=== PATIENT | male | born 1945 | race Hispanic/Latino ===

== ENCOUNTER 2022-03-20 19:22 | Emergency (ER) | payer OTHER ==
[2022-03-20] MEDS ORDERED: NA CHLORIDE 0.9% 1,000 ML ONE (20:15)
[2022-03-20 21:17] LABS: Absolute Lymphocytes (CBC) 0.9 K/uL (0.7-4.9); Hematocrit 29.3 % (39.6-49.0); Lymphocytes % 25.1 % (15.3-44.8); MPV 7.6 fL (7.6-11.3); RBC Red Blood Cell Count 3.08 M/uL (4.33-5.43)
[2022-03-20 21:18] LABS: Protime INR 1.56
[2022-03-20 21:21] LABS: Urine Blood 3+ (Negative); Urine Glucose Negative (Negative); Urine Protein 1+ (Negative)
[2022-03-20 21:40] LABS: Urine RBC >50 /HPF (NONE SEEN)
[2022-03-20 21:41] LABS: Urine Bacteria 20-50 /HPF (NONE SEEN)
[2022-03-20 21:58] LABS: AST/SGOT 13 U/L (15-37); Alkaline Phosphatase 72 U/L (45-117); BUN Blood Urea Nitrogen 14 mg/dL (7-18); Bicarbonate 22 mmol/L (21-32); Bilirubin Total 0.2 mg/dL (0.2-1.0); Glomerular Filtration Rate 116 ml/min (=/>90); Glucose Level 139 mg/dL (74-106); Lipase 17 U/L (73-393); Protein, Total 3.4 g/dL (6.4-8.2); Sodium Level 152 mmol/L (136-145)
[2022-03-20 22:02] LABS: ALT/SGPT < 10 U/L (12-78); Albumin < 0.8 g/dL (3.4-5.0)
[2022-03-20 22:03] LABS: Potassium 2.2 mmol/L (3.5-5.1)
[2022-03-20] MEDS ORDERED: KCL 20 MEQ/100 mL IVPB 100 ML IV ONE (22:25)
[2022-03-20] MEDS ORDERED: CEFTRIAXONE 1000 MG/VIAL ONE (22:25)
[2022-03-20] MEDS ORDERED: NA CHLORIDE 0.9% 50 ML ONE (22:25)
--- NOTE | 2022-03-20 23:37 | EDPHYS ---
Physician Documentation [facility] Name: Leonel Dejesus Jr Age: 76 yrs Sex: Male : 1945 Arrival Date: 03/20/2022 Time: 19:37 Bed 6 Private MD: ED Physician Omid Lobato HPI: 03/20 19:42 This 76 yrs old Male presents to ER via EMS with complaints of Diarrhea. mh7 Decreased urination. 19:42 The patient presents to the emergency department with diarrhea, that is intermittent. mh7 Onset: The symptoms/episode began/occurred 3 week(s) ago. Possible causes: unknown. The symptoms are aggravated by nothing. The symptoms are alleviated by nothing. Associated signs and symptoms: Pertinent positives: abdominal pain, anorexia, Pertinent negatives: belching, constipation, fever, flatulence, GI bleeding, hematuria, nausea, vomiting. Severity of symptoms: At their worst the symptoms were moderate 2 day(s) ago, in the emergency department the symptoms are unchanged. Historical: - Allergies: 19:50 No Known Allergies; ll3 - Home Meds: 19:50 Eliquis oral [Active]; ll3 - Immunization history:: Client reports receiving the 2nd dose of the Covid vaccine. - Social history:: Smoking status: Patient denies any tobacco usage or history of. ROS: 19:42 Constitutional: Negative for fever, chills, and weight loss, Eyes: Negative for injury, mh7 pain, redness, and discharge, ENT: Negative for injury, pain, and discharge, Neck: Negative for injury, pain, and swelling, Cardiovascular: Negative for chest pain, palpitations, and edema, Respiratory: Negative for shortness of breath, cough, wheezing, and pleuritic chest pain, Back: Negative for injury and pain, MS/Extremity: Negative for injury and deformity, Skin: Negative for injury, rash, and discoloration, Neuro: Negative for headache, weakness, numbness, tingling, and seizure, Psych: Negative for depression, anxiety, suicide ideation, homicidal ideation, and hallucinations, Allergy/Immunology: Negative for hives, rash, and allergies, Endocrine: Negative for neck swelling, polydipsia, polyuria, polyphagia, and marked weight changes, Hematologic/Lymphatic: Negative for swollen nodes, abnormal bleeding, and unusual bruising. Exam: 19:42 Head/Face: Normocephalic, atraumatic. Eyes: Pupils equal round and reactive to light, mh7 extra-ocular motions intact. Lids and lashes normal. Conjunctiva and sclera are non-icteric and not injected. Cornea within normal limits. Periorbital areas with no swelling, redness, or edema. 19:42 Neck: Trachea midline, no thyromegaly or masses palpated, and no cervical lymphadenopathy. Supple, full range of motion without nuchal rigidity, or vertebral point tenderness. No Meningismus. Chest/axilla: Normal chest wall appearance and motion. Nontender with no deformity. No lesions are appreciated. Cardiovascular: Regular rate and rhythm with a normal S1 and S2. No gallops, murmurs, or rubs. Normal PMI, no JVD. No pulse deficits. Respiratory: Lungs have equal breath sounds bilaterally, clear to auscultation and percussion. No rales, rhonchi or wheezes noted. No increased work of breathing, no retractions or nasal flaring. Back: No spinal tenderness. No costovertebral tenderness. Full range of motion. Skin: Warm, dry with normal turgor. Normal color with no rashes, no lesions, and no evidence of cellulitis. 19:42 Psych: Awake, alert, with orientation to person, place and time. Behavior, mood, and affect are within normal limits. 19:42 Constitutional: The patient appears in no acute distress, alert, awake, frail. 19:42 ENT: Mouth: Oral mucosa: dry, Posterior pharynx: is normal. 19:42 Abdomen/GI: Inspection: distension, that is moderate, Bowel sounds: normal, in all quadrants, Palpation: mild abdominal tenderness, in the right upper quadrant and left upper quadrant, mass, is not appreciated, rebound tenderness, is not appreciated, voluntary guarding, is not appreciated, involuntary guarding, is not appreciated, no appreciated organomegaly, Indicators: McBurney's point is not tender, Mahan's sign is negative, Rovsing's sign is negative, Obturator sign is negative, Psoas sign is negative, Liver: no appreciated palpable abnormalities, Hernia: not appreciated. 19:42 Neuro: Orientation: is normal, Mentation: is normal, Memory: is normal, Cranial nerves: grossly normal, Cerebellar function: is grossly normal, Motor: is grossly normal based on the patient's age, Sensation: no obvious gross deficits, Gait: not tested. seizure activity, is not displayed by the patient, Abnormal movements: there are no abnormal movements. Vital Signs: 19:46 BP 100 / 77; Pulse 99; Resp 20; Temp 97.7(O); Pulse Ox 99% on R/A; Weight 74.84 kg (R); ll3 Height 5 ft. 11 in. (180.34 cm) (R); Pain 7/10; 20:30 BP 97 / 72; Pulse 87; Resp 18; Pulse Ox 99% on R/A; ll3 21:15 BP 113 / 79; Pulse 73; Resp 18; Pulse Ox 100% ; ll3 19:46 Body Mass Index 23.01 (74.84 kg, 180.34 cm) ll3 MDM: 23:34 Differential diagnosis: Nonspecific abd pain, gastritis, cholecystitis, pancreatitis, 7 diverticulitis, viral gastroenteritis, gastroenteritis. Data reviewed: vital signs, nurses notes, EMS record, lab test result(s), CBC, electrolytes, urinalysis, EKG, radiologic studies, CT scan. Data interpreted: Pulse oximetry: on room air is 100 %. Interpretation: normal. Counseling: I had a detailed discussion with the patient and/or guardian regarding: the historical points, exam findings, and any diagnostic results supporting the discharge/admit diagnosis, lab results, radiology results, the need for further work-up and treatment in the hospital. Response to treatment: the patient's symptoms have mildly improved after treatment. 23:36 Patient medically screened. [facility] 03/21 00:51 ED course: Family requests transfer to [facility] for continuity of [facility] care with his doctors.. 03/20 19:54 Order name: CBC with Diff; Complete Time: 22:13 [facility] 03/20 19:54 Order name: CMP; Complete Time: 22:08 [facility] 03/20 19:54 Order name: Lipase; Complete Time: 22:13 [facility] 03/20 19:54 Order name: Urine Microscopic Only; Complete Time: 21:58 [facility] 03/20 19:55 Order name: Protime (+inr); Complete Time: 22:13 [facility] 03/20 19:55 Order name: Ptt, Activated; Complete Time: 22:13 [facility] 03/20 19:56 Order name: CT Abd/Pelvis - IV Contrast Only [facility] 03/20 20:37 Order name: SARS-COV-2 RT PCR; Complete Time: 22:26 [facility] 03/20 20:37 Order name: Influenza Screen (A ; Complete Time: 22:13 [facility] 03/20 21:21 Order name: Urine Dipstick-Ancillary; Complete Time: 22:13 [facility] 03/20 21:43 Order name: Urine Culture [facility] 23:30 Order name: BNP; Complete Time: 00:26 [facility] 03/20 23:30 Order name: Troponin High Sensitivity; Complete Time: 00:41 [facility] 03/20 19:54 Order name: IV Saline Lock; Complete Time: 21:14 [facility] 03/20 19:54 Order name: Labs collected and sent; Complete Time: 21:14 [facility] 03/20 19:54 Order name: Urine Dipstick-Ancillary (obtain specimen); Complete Time: 22:15 [facility] 03/20 19:54 Order name: Gomez; Complete Time: 21:09 [facility] 03/20 19:54 Order name: EKG; Complete Time: 19:55 [facility] 03/20 19:54 Order name: EKG - Nurse/Tech; Complete Time: 22:14 [facility] 03/20 23:30 Order name: Chest Single View XRAY me1 Administered Medications: 03/20 20:28 Drug: NS 0.9% 1000 ml Route: IV; Rate: 1 bolus; Site: right wrist; 3 03/21 00:45 Follow up: Response: No adverse reaction; IV Status: Completed infusion; IV Intake: ll3 1000ml 03/20 22:40 Drug: Rocephin (cefTRIAXone) 1 grams Route: IV; Rate: per protocol; Site: right wrist; 3 22:52 Follow up: Response: No adverse reaction; IV Status: Completed infusion; IV Intake: [id number] 22:50 Drug: Potassium Chloride 20 mEq Route: IV; Rate: per protocol; Site: right antecubital; 3 03/21 00:44 Follow up: Response: No adverse reaction; IV Status: Completed infusion; IV Intake: ll3 100ml 00:44 Drug: D5W with KCL 20 mEq/L 1000 ml Route: IV; Rate: 75 ml/hr; Site: right antecubital; ll3 00:44 Drug: Potassium Chloride 20 mEq Route: IV; Rate: calculated rate; Site: right wrist; ll3 02:03 Not Given (Pt transferedd): Potassium Chloride 20 mEq IV at per protocol once; ll3 administer over 1-2 hours Disposition Summary: 03/21/22 00:51 Transfer Ordered Transfer Location: [place] [id number] Reason: Higher level of care [facility] Condition: Stable(03/21/22 00:51) [facility] Problem: an ongoing problem(03/21/22 00:51) [facility] Symptoms: have improved(03/21/22 00:51) [facility] Accepting Physician: Dr. Gifford(03/21/22 02:22) vc1 Diagnosis - Diarrhea, unspecified(03/21/22 00:51) [facility] - Dehydration(03/21/22 00:51) [facility] - Hyperosmolality and hypernatremia(03/21/22 00:51) [facility] - Hypokalemia(03/21/22 00:51) [facility] - UTI/ Urinary tract infection, site not specified(03/21/22 00:51) [facility] Forms: - Medication Reconciliation Form [facility] - SBAR form [facility] Signatures: Dispatcher [employer] EDMS Lalito Alexander, FISH DRIER-C FISH DRIER-Cla1 Omid Lobato MD MD 7 Anam Olivo RN RN ll3 Amber Lara RN RN vc1 Corrections: (The following items were deleted from the chart) 00:49 03/20 23:36 Inpatient Admission [place] [address] 03/21 00:49 03/20 23:36 OmitMacho law [place] [address] 03/21 00:49 03/20 23:36 Telemetry/MedSurg (Inpatient) [place] [address] 03/21 00:49 03/20 23:36 Stable [place] [address] 03/21 00:49 03/20 23:36 an ongoing problem [place] [address] 03/21 00:49 03/20 23:36 have improved [place] [address] 03/21 00:49 03/20 23:36 Standard [place] [address] 03/21 00:49 03/20 23:36 [place] [address] 03/21 00:49 03/20 23:36 Diarrhea, unspecified [place] [address] 03/21 00:49 03/20 23:36 Dehydration [place] [address] 03/21 00:49 03/20 23:36 Hyperosmolality and hypernatremia [place] [address] 03/21 00:49 03/20 23:36 Hypokalemia [place] [address] 03/21 00:49 03/20 23:36 UTI/ Urinary tract infection, site not specified [place] [address] 03/21 02:22 00:51 Dr. Gifford [facility] vc1
--- NOTE | 2022-03-20 23:37 | ER ---
Nurse's Notes [facility] Name: Leonel Dejesus Jr Age: 76 yrs Sex: Male : 1945 Arrival Date: 03/20/2022 Time: 19:37 Bed 6 Private MD: Diagnosis: Diarrhea, unspecified;Dehydration;Hyperosmolality and hypernatremia;Hypokalemia;UTI/ Urinary tract infection, site not specified Presentation: 03/20 19:46 Chief complaint: EMS states: Toned out for not urinating for 2 days, and diarrhea for 3 ll3 weeks, EMS states pt BP was 76/64 CONSIGNEE, pt c/o abdominal pain / since , states pt has not been eating normally. Coronavirus screen: Vaccine status: Patient reports receiving the 2nd dose of the covid vaccine. diarrhea. Ebola Screen: No symptoms or risks identified at this time. Initial Sepsis Screen: Does the patient meet any 2 criteria?. Risk Assessment: Do you want to hurt yourself or someone else? Patient reports no desire to harm self or others. Onset of symptoms is unknown. 19:46 Method Of Arrival: EMS: [facility] ll3 19:46 Acuity: PHILLIP 3 ll3 Triage Assessment: 19:50 General: Appears comfortable, Behavior is calm, cooperative. Pain: Complains of pain in ll3 abdomen Pain currently is 7 out of 10 on a pain scale. Pain began 2-3 days ago. Is continuous. Neuro: Level of Consciousness is awake, alert, obeys commands, Oriented to person, place, situation. Respiratory: Respiratory effort is even, unlabored, Respiratory pattern is regular, symmetrical. GI: Abdomen is round non-distended, Stools are reported to be diarrhea. Parent/caregiver reports the patient having diarrhea, incontinence, intolerance of food, pain. : Parent/caregiver report the patient having inability to void since 2 days. Derm: Skin is pink, warm \T\ dry. Historical: - Allergies: 19:50 No Known Allergies; ll3 - Home Meds: 19:50 Eliquis oral [Active]; ll3 - Immunization history:: Client reports receiving the 2nd dose of the Covid vaccine. - Social history:: Smoking status: Patient denies any tobacco usage or history of. Assessment: 19:53 General: See triage assessment. ll3 21:00 Reassessment: No changes from previously documented assessment. Patient and/or family ll3 updated on plan of care and expected duration. Pain level reassessed. Patient is alert, oriented x 3, equal unlabored respirations, skin warm/dry/pink. 22:03 Reassessment: critical alerts called by lab, potassium 2.2, Cl 124, Ca 5.6, Alb. less vc1 than 0.8. Vital Signs: 19:46 BP 100 / 77; Pulse 99; Resp 20; Temp 97.7(O); Pulse Ox 99% on R/A; Weight 74.84 kg (R); ll3 Height 5 ft. 11 in. (180.34 cm) (R); Pain 7/10; 20:30 BP 97 / 72; Pulse 87; Resp 18; Pulse Ox 99% on R/A; ll3 21:15 BP 113 / 79; Pulse 73; Resp 18; Pulse Ox 100% ; ll3 19:46 Body Mass Index 23.01 (74.84 kg, 180.34 cm) ll3 ED Course: 19:37 Patient arrived in ED. mw2 19:42 Omid Lobato MD is Attending Physician. 7 19:46 Anam Olivo, BRIANDA is Primary Nurse. ll3 19:50 Triage completed. ll3 19:50 Arm band placed on Patient placed in an exam room, on a stretcher, on pulse oximetry. ll3 20:59 Inserted saline lock: 22 gauge in right antecubital area, using aseptic technique. ll3 Blood collected. 22:38 CT Abd/Pelvis - IV Contrast Only In Process Unspecified. EDMS 23:35 Macho Roche MD is Hospitalizing Provider. [facility] 03/21 00:01 initiated a transfer with Caleb Truongkaley from [facility]. mw2 00:20 Chest Single View XRAY In Process Unspecified. EDMS 00:22 X-ray completed. Portable x-ray completed in exam room. Patient tolerated procedure [facility]. 00:44 administrative approval given by Caleb Patel/ patient has been accepted to [address]/ Dr. Gifford accepted the patient in transfer/report to be called to [phone]. Administered Medications: 03/20 20:28 Drug: NS 0.9% 1000 ml Route: IV; Rate: 1 bolus; Site: right wrist; ll3 12 00:45 Follow up: Response: No adverse reaction; IV Status: Completed infusion; IV Intake: ll3 1000ml 03/20 22:40 Drug: Rocephin (cefTRIAXone) 1 grams Route: IV; Rate: per protocol; Site: right wrist; ll3 22:52 Follow up: Response: No adverse reaction; IV Status: Completed infusion; IV Intake: [id number] 22:50 Drug: Potassium Chloride 20 mEq Route: IV; Rate: per protocol; Site: right antecubital; ll3 06 00:44 Follow up: Response: No adverse reaction; IV Status: Completed infusion; IV Intake: ll3 100ml 00:44 Drug: D5W with KCL 20 mEq/L 1000 ml Route: IV; Rate: 75 ml/hr; Site: right antecubital; ll3 00:44 Drug: Potassium Chloride 20 mEq Route: IV; Rate: calculated rate; Site: right wrist; 3 02:03 Not Given (Pt transferedd): Potassium Chloride 20 mEq IV at per protocol once; ll3 administer over 1-2 hours Intake: 03/20 22:52 IV: 50ml; Total: 50ml. ll3 03/21 00:44 IV: 100ml; Total: 150ml. ll3 00:45 IV: 1000ml; Total: 1150ml. ll3 Outcome: 03/20 23:36 Decision to Hospitalize by Provider. 7 03/21 00:51 ER care complete, transfer ordered by . [facility] 02:22 Patient left the ED. vc1 Signatures: Dispatcher [employer] EDHoa Velasquez 1 Ann-Marie Busby 2 Omid Lobato MD MD 7 Anam Olivo, BRIANDA RN 3 Amber Lara RN RN vc1
[2022-03-21 00:11] LABS: Troponin High Sensitivity 184.1 pg/mL (<58.9)
[2022-03-21] MEDS ORDERED: KCL 20 MEQ/100 mL IVPB 100 ML IV ONE (00:36)
[2022-03-21] MEDS ORDERED: D5.45NS W/KCL 20MEQ 1,000 ML IV ONE (00:36)
[2022-03-21 02:28] VITALS: TEMP 97.7
[2022-03-21 02:34] VITALS: BP 113/79; O2SAT 100
--- NOTE | 2022-03-22 13:37 | EKG ---
Test Date: 2022-03-20 Test Time: 21:24:32 Gps Field Data Collector: LL MEASUREMENT RESULTS: Intervals: Rate: 83 DC: 128 QRSD: 84 QT: 262 QTc: 307 Gilbert: P: 27 DC: 128 QRS: 14 T: 190 INTERPRETIVE STATEMENTS: Sinus rhythm with premature atrial complexes with aberrant conduction Low voltage QRS Nonspecific ST and T wave abnormality Abnormal ECG No previous ECG available for comparison Electronically Signed On 03-22-22 13:34:55 CDT by Homero Tomlinson
--- NOTE | 2022-03-22 13:49 | RAD REPORT ---
EXAM DESCRIPTION: CT - Abdomen Pelvis W Contrast - 03/21/2022 2:11 am CLINICAL HISTORY: Abdominal pain, acute, nonlocalized. COMPARISON: None. TECHNIQUE: CT of the abdomen and pelvis was performed following intravenous administration of iodina keaton contrast. Arterial phase images through the abdomen, and portal venous phase images of the abdome n and pelvis were obtained. Oral contrast was not administered. Axial, coronal, and sagittal soft tis natasha window reconstructions were created and sent to PACS. This exam was performed according to our departmental dose-optimization program, which includes autom ated exposure control, adjustment of the mA and/or kV according to patient size and/or use of iterati ve reconstruction technique. FINDINGS: Thoracic: Partially imaged medium to large bilateral pleural effusions. Hepatobiliary: No concerning hepatic lesion identified. Multiple small hepatic hypodensities, possibl y cysts. The portal veins are patent. The gallbladder is unremarkable. No biliary ductal dilatation. Pancreas: Unremarkable. Spleen: Unremarkable. Gastrointestinal: Mild circumferential wall thickening in the rectum, which contains a small amount o f liquid stool. Prominent gaseous distention of the sigmoid colon and transverse colon. No definite v olvulus. Moderate amount of fecal material in the right colon. No evidence of small bowel obstruction . The appendix is nonvisualized, but there are no pericecal inflammatory changes identified. Adrenals: No abnormality identified in either adrenal gland. Renal: No concerning parenchymal abnormality in either kidney. No hydronephrosis or urolithiasis. Bladder/Reproductive: The urinary bladder is decompressed by a balloon catheter. Mild prostatomegaly. Vascular/Lymphatics: Mildly prominent retroperitoneal lymph nodes. Mild calcific atherosclerosis. Abd ominal aorta is normal in caliber. Musculoskeletal: No concerning osseous lesion identified. Severe anasarca. Moderate disc and endplate degenerative changes at L3-4. Fluid / peritoneum: Moderate abdominopelvic free fluid. No free intraperitoneal air identified. IMPRESSION 1. Mild circumferential wall thickening in the rectum, which contains a small amount of liquid stool. Prominent gaseous distention of the sigmoid colon and transverse colon. No definite vo lvulus. 2. Fluid overload, with moderate abdominopelvic ascites, severe anasarca, and partially imaged medi um to large pleural effusions. Electronically signed by: Tiana Carter MD 03/20/2022 11:25 PM CDT Due to temporary technical issues with the PACS/Fluency reporting system, reports are being signed by the in house radiologist without review as a courtesy to ensure prompt reporting. The interpreting r adiologist is fully responsible for the content of the report.
--- NOTE | 2022-03-22 13:50 | RAD REPORT ---
EXAM DESCRIPTION: RAD - Chest Single View - 03/21/2022 12:18 am CLINICAL HISTORY: 76 years, Male, ABN CT COMPARISON: None FINDINGS: Single view of the chest was obtained portable. Prior films were compared. External EKG le ads within the [id number] limits diagnosis. There is decreased lung volume. The heart is not enl arged. The thoracic aorta is mildly tortuous. Elevation of the right hemidiaphragm. Blunting of the r ight lateral CP angle suggest small trace of pleural effusion. Compressive atelectatic changes right lung base. The rest of the soft tissue and bony structures demonstrate to be unremarkable. IMPRESSION: Small trace of right pleural effusion with compressive atelectatic changes right lung ba se. Electronically signed by: David Temple MD 03/21/2022 12:39 AM CDT Due to temporary technical issues with the PACS/Fluency reporting system, reports are being signed by the in house radiologist without review as a courtesy to ensure prompt reporting. The interpreting r adiologist is fully responsible for the content of the report.
== END 2022-03-21 02:22 | disposition short-term general hospital (02) ==
LOC: ER 19:22
DX: E86.0 Dehydration (principal); E87.1 Hypo-osmolality and hyponatremia; E87.6 Hypokalemia; N39.0 Urinary tract infection, site not specified; Z20.822 Contact with and (suspected) exposure to COVID-19; Z79.01 Long term (current) use of anticoagulants
CPT/HCPCS: 96365; 96361; 93005; 87088; 85025; 87086; 36415; 85610; 85730; 84484; 83690; 80053; 83880; 87804 ×2; 74177; 71045; 96375; 99284; 96366; U0003; Q9967; J3480 ×2; J7030; 81003; 81015

== ENCOUNTER 2022-06-02 13:34 | Inpatient (IN) | payer OTHER ==
--- OUTSIDE RECORDS SUMMARY | 2022-06-02 13:40 | XMS REPORT | Continuity of Care Document ---
:1945 Author Organization [facility] t Address [address] [place] [address] Care Team Providers Name Role Phone [phone] Attending Clinician Unavailable Ana Attending Clinician Unavailable BABAK MIRANDA Attending Clinician Unavailable JEAN ROE Attending Clinician Unavailable Thomas Attending Clinician Unavailable SANNA SARGENT Attending Clinician Unavailable Sim Correa MD Attending Clinician Kadie Attending Clinician Unavailable [id number] Admitting Clinician Unavailable Ana Admitting Clinician Unavailable BABAK MIRANDA Admitting Clinician Unavailable JEAN ROE Admitting Clinician Unavailable Thomas Admitting Clinician Unavailable SANNA SARGENT Admitting Clinician Unavailable Kadie Admitting Clinician Unavailable Payers Payer Name Policy Type Policy Number Effective Date Expiration Date Ana zendejas HUMANA MEDICARE [id number] 2021 ADVANTAGE PPO 00:00:00 HUMANA (MEDICARE [id number] REPLACEMENT/ADVANTA GE - PPO) AETNA (MEDICARE [id number] 2019 REPLACEMENT PPO) 00:00:00 AETNA [id number] 2019 00:00:00 [facility] - [id number] MEDICARE SOLUTIONS - MEDICARE COMPLETE (MEDICARE REPLACEMENT PPO) Problems Condition Condition Condition Status Onset Resolution Last Treating Co mments Source Name Details Category Date Date Treatment Clinician Date Low back Low Back Problem Active [place] pain Pain 06-11 da 00:00: Medical 00 Group Muscle Muscle Problem Active [place] spasm of Spasm of 06-11 da cervical Cervical 00:00: Medica l muscle of Muscle of 00 Grou p neck Neck Chronic Chronic Problem Active [place]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 Social History Social Habit Start Date Stop Date Quantity Comments Source Sex Assigned At [birth year] [facility] 00:00:00 00:00:00 Smoking Status Start Date Stop Date Source Former Smoker [facility] Tobacco smoking consumption unknown [facility] Medications Ordered Filled Start Stop Current Ordering Indication Dosage Frequency Signature Comments Components Source Medication Medication Date Date Medication? Clinician (SIG) Name Name Eliquis 5 Eliquis 5 No Eliquis 5 [place] mg tablet mg tablet mg tablet da TAKE 1 TAKE 1 TAKE 1 Medical TABLET BY TABLET BY TABLET BY Group MOUTH TWICE MOUTH TWICE MOUTH DAILY FOR DAILY FOR TWICE DVT DVT DAILY FOR DVT Immunizations Ordered Immunization Filled Immunization Date Status Commen ts Source Name Name COVID-19, mRNA, COVID-19, mRNA, 2021-09-16 Completed Donn marina LNP-S, PF, 30 LNP-S, PF, 30 00:00:00 Medical Group mcg/0.3 mL dose mcg/0.3 mL dose (Pfizer-BioNTech) (Konnects-BioNTech) influenza, influenza, 2021-08-19 Completed [place] injectable, injectable, 00:00:00 Medical Grou p quadrivalent quadrivalent COVID-19 COVID-19 2021-01-15 Completed [place] (SARS-COV-2) (SARS-COV-2) 00:00:00 Medical Gr oup vaccine, unspecified vaccine, unspecified COVID-19 COVID-19 2020-12-25 Completed [place] (SARS-COV-2) (SARS-COV-2) 00:00:00 Medical Gr oup vaccine, unspecified vaccine, unspecified influenza, influenza, 2020-06-18 Completed [place] injectable, injectable, 00:00:00 Medical Grou p quadrivalent quadrivalent influenza, high dose influenza, high 2019-07-28 Completed [place] seasonal dose seasonal 00:00:00 Medical Stevie up Vital Signs Vital Name Observation Time Observation Value Comments Source BP Diastolic 2022-02-22 00:00:00 57 mm[Hg] [facility] Height 2022-02-22 00:00:00 71 [in_i] [facility] BMI (Body Mass 2022-02-22 00:00:00 16.9 kg/m2 [facility] Medical Index) Group BP Systolic 2022-02-22 00:00:00 80 mm[Hg] [facility] Body Weight 2022-02-22 00:00:00 1936 [oz_av] [facility] BP Diastolic 2022-01-05 00:00:00 63 mm[Hg] [facility] Height 2022-01-05 00:00:00 71 [in_i] [facility] BMI (Body Mass 2022-01-05 00:00:00 16.9 kg/m2 [facility] Medical Index) Group BP Systolic 2022-01-05 00:00:00 110 mm[Hg] [facility] Body Weight 2022-01-05 00:00:00 1936 [oz_av] [facility] BP Diastolic 2021-12-24 00:00:00 63 mm[Hg] [facility] Height 2021-12-24 00:00:00 71 [in_i] [facility] BP Systolic 2021-12-24 00:00:00 91 mm[Hg] [facility] BP Diastolic 2021-08-18 00:00:00 75 mm[Hg] [facility] Height 2021-08-18 00:00:00 71 [in_i] [facility] BMI (Body Mass 2021-08-18 00:00:00 21.6 kg/m2 [facility] Medical Index) Group BP Systolic 2021-08-18 00:00:00 128 mm[Hg] [facility] Body Weight 2021-08-18 00:00:00 2481 [oz_av] [facility] BP Diastolic 2021-06-09 00:00:00 80 mm[Hg] [facility] Height 2021-06-09 00:00:00 71 [in_i] [facility] BMI (Body Mass 2021-06-09 00:00:00 22.7 kg/m2 [facility] Medical Index) Group BP Systolic 2021-06-09 00:00:00 145 mm[Hg] [facility] Body Weight 2021-06-09 00:00:00 2608 [oz_av] [facility] BP Diastolic 2021 00:00:00 74 mm[Hg] [facility] Height 2021 00:00:00 71 [in_i] [facility] BMI (Body Mass 2021 00:00:00 23.3 kg/m2 [facility] Medical Index) Group BP Systolic 2021 00:00:00 134 mm[Hg] [facility] Body Weight 2021 00:00:00 167 [lb_av] [facility] BP Diastolic 2021-06-04 00:00:00 79 mm[Hg] [facility] Height 2021-06-04 00:00:00 71 [in_i] [facility] BMI (Body Mass 2021-06-04 00:00:00 23.3 kg/m2 [facility] BP Systolic 2021-06-04 00:00:00 127 mm[Hg] [facility] Body Weight 2021-06-04 00:00:00 2672 [oz_av] [facility] BP Diastolic 2021-05-27 00:00:00 74 mm[Hg] [facility] Height 2021-05-27 00:00:00 71 [in_i] [facility] BMI (Body Mass 2021-05-27 00:00:00 23.6 kg/m2 [facility] Medical Index) Group BP Systolic 2021-05-27 00:00:00 120 mm[Hg] [facility] Body Weight 2021-05-27 00:00:00 2704 [oz_av] [facility] BP Diastolic 2020-07-30 00:00:00 69 mm[Hg] [facility] Height 2020-07-30 00:00:00 71 [in_i] [facility] BMI (Body Mass 2020-07-30 00:00:00 23.4 kg/m2 [facility] BP Systolic 2020-07-30 00:00:00 117 mm[Hg] [facility] Body Weight 2020-07-30 00:00:00 2690 [oz_av] [facility] BP Diastolic 2019-09-27 00:00:00 76 mm[Hg] [facility] Height 2019-09-27 00:00:00 71 [in_i] [facility] BMI (Body Mass 2019-09-27 00:00:00 25.2 kg/m2 [facility]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 BP Systolic 2019-09-27 00:00:00 122 mm[Hg] [facility] Body Weight 2019-09-27 00:00:00 2896 [oz_av] [facility] BP Diastolic 2019-08-02 00:00:00 77 mm[Hg] [facility] Height 2019-08-02 00:00:00 71 [in_i] [facility] BMI (Body Mass 2019-08-02 00:00:00 24.7 kg/m2 [facility] BP Systolic 2019-08-02 00:00:00 130 mm[Hg] [facility] Body Weight 2019-08-02 00:00:00 2832 [oz_av] [facility] BP Diastolic 2019-07-26 00:00:00 70 mm[Hg] [facility] Height 2019-07-26 00:00:00 71 [in_i] [facility] BMI (Body Mass 2019-07-26 00:00:00 24.8 kg/m2 [facility] Medical Index) Group BP Systolic 2019-07-26 00:00:00 115 mm[Hg] [facility] Body Weight 2019-07-26 00:00:00 2848 [oz_av] [facility] BP Diastolic 2019-05-28 00:00:00 73 mm[Hg] [facility] Height 2019-05-28 00:00:00 71 [in_i] [facility] BMI (Body Mass 2019-05-28 00:00:00 25 kg/m2 [facility] Medical Index) Group BP Systolic 2019-05-28 00:00:00 122 mm[Hg] [facility] Body Weight 2019-05-28 00:00:00 2864 [oz_av] [facility] BP Diastolic 2019-01-24 00:00:00 74 mm[Hg] [facility] Height 2019-01-24 00:00:00 71 [in_i] [facility] BMI (Body Mass 2019-01-24 00:00:00 24.4 kg/m2 [facility] Medical Index) Group BP Systolic 2019-01-24 00:00:00 138 mm[Hg] [facility] Body Weight 2019-01-24 00:00:00 2800 [oz_av] [facility] BP Diastolic 2018-10-26 00:00:00 78 mm[Hg] [facility] Height 2018-10-26 00:00:00 71 [in_i] [facility] BMI (Body Mass 2018-10-26 00:00:00 24.9 kg/m2 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 BP Systolic 2018-10-26 00:00:00 135 mm[Hg] [facility] Body Weight 2018-10-26 00:00:00 2856 [oz_av] [facility] Procedures Procedure Date / Time Performed Performing Clinician [facility] kaley Repair of Inguinal 2021-12-15 00:00:00 [facility] MRI LUMBAR SPINE W WO 2021-08-22 19:50:00 [facility] W WO 2021-08-22 19:50:00 [facility], unilateral 2019-05-28 00:00:00 [facility] Insertion of Stent [facility] [facility] Plan of Care Planned Activity Planned Date Details Comments Source Diagnostic Test 2022-02-22 BMP, serum or [place] [facility] Pending 00:00:00 plasma [code = Group BMP, serum or plasma] Encounters Start End Encounter Admission Attending Care Care Encounter Source Date/Time Date/Time Type Type Clinicians Facility Department ID 2022-04-05 Outpatient [facility] [id number] [place] 06:57:16 [id number] Health 2022-03-16 Outpatient 3 [id number] ENCPL SCN ENCPL 09:55:53 0607 2022-03-10 Outpatient 3 [id number] ENC[facility] REF [id number] E[facility] 09:47:22 0601 2022-03-09 Outpatient 3 [id number] ENCPL REF [id number] ENCPL 15:41:52 0531 2022-06-01 2022-06-01 Outpatient Zuniga_F [facility]G MMG 2021 [place] 00:00:00 00:00:00 0823 [facility] 2022-05-28 2022-05-28 Outpatient Zuniga_F MMG MMG [id number] [place] 00:00:00 00:00:00 0819 [facility] 2022-03-23 2022-04-23 Inpatient U RUBEN [facility] [id number] [facility] 09:34:00 13:32:00 BABAK 2022-02-22 2022-02-22 Outpatient Zuniga_F MMG MMG [id number] [place] 09:29:00 09:29:00 0516 [facility] 2022-02-22 2022-02-22 Marie MMG [place] - [id number] [place] 00:00:00 00:00:00 Tristian [facility] Medical MD: [address] [facility] [address], [place] [address] , Ph. 2022-02-15 2022-02-15 Outpatient Zuniga_F MMG MMG [id number] [place] 02:45:00 02:45:00 0509 Medical Group 2022-01-15 2022-01-27 Inpatient [facility] 2097 [facility] 21:57:00 14:07:00 JAMEEDALTONTwyla 2022-01-08 2022-01-08 Outpatient Zuniga_F MMG MMG 2021 [place] 01:22:00 01:22:00 0427 Medical Group 2022-01-05 2022-01-05 Outpatient Zuniga_F MMG MMG 2021 [place] 10:07:00 10:07:00 0329 [facility] 2022-01-05 2022-01-05 Marie MMG [place] - [id number] [place] 00:00:00 00:00:00 Yolande Guevara Medical MD: [address] [facility] [address], [place] [address] , Ph. 2021-12-24 2021-12-24 Outpatient Hawkins_M MMG MMG [id number] [place] 10:46:00 10:46:00 0317 [facility] 2021-12-24 2021-12-24 Shara MMG [place] - [id number] [facility] 00:00:00 00:00:00 Danni Morrison Medical Medical COST COORDINATOR: [address] [facility] [address], [place] [address] , Ph. 2021-12-05 2021-12-20 Inpatient E ARIE, [facility] [id number] [facility] 00:15:00 13:20:00 SANNA 2021-08-22 2021-08-22 EXT [facility] OP Madeline, EXT MSRDP [id number] [place] 00:00:00 00:00:00 Sim LOCATION [id number] H eahugo [place] [id number] 2021-08-22 2021-08-22 EXT [facility] OP Madeline, EXT MSRDP [id number] [place] 00:00:00 00:00:00 Sim LOCATION [id number] H eah [place]arc[place] [id number] 2021-08-18 2021-08-18 [facility] [id number] [place] 03:35:00 03:35:00 1109 Medical Group 2021-08-18 2021-08-18 Marie [facility] [place] - [id number] [place] 00:00:00 00:00:00 Yolande Guevara Medical MD: [address] [place] [address] , Ph. 2021-06-30 2021-06-30 [facility] [id number] [place] 11:39:00 11:39:00 0928 [facility] 2021-06-09 2021-06-09 [place] [id number] [place] 05:00:00 05:00:00 0831 [facility] 2021-06-09 2021-06-09 [place] [id number] [place] 05:00:00 05:00:00 0902 [facility] 2021-06-09 2021-06-09 Shara [facility] [place] - [id number] M [facility] 00:00:00 00:00:00 Yolande Thayer Medical COST COORDINATOR: [address] [facility] [address], [place] [address] , Ph. 2021-06-06 2021-06-06 Outpatient Koudela_A MMG MM [place] 07:10:00 07:10:00 0830 [facility] 2021 2021 Outpatient Koudela_A MMG MM [place] 11:39:00 11:39:00 0827 [facility] 2021 2021 Outpatient Koudela_A MMG MM [place] 11:39:00 11:39:00 0828 [facility] 2021 2021 Carlos Eduardo [facility] [place] - [id number] [facility] 00:00:00 00:00:00 Antonio Mora MD: Medical Medica l [address] [facility] [address], [place] [address] , Ph. [phone] 2021-06-04 2021-06-04 Outpatient Koudela_A MMG MM [place] 04:21:00 04:21:00 0826 [facility] 2021-06-04 2021-06-04 Marie [facility] [place] - [id number] [place] 00:00:00 00:00:00 Yolande Guevara Medical MD: [address] [facility] [address], [place] [address] , Ph. 2021-05-28 2021-05-28 Outpatient Koudela_A MMG MM [place] 09:02:00 09:02:00 0820 [facility] 2021-05-27 2021-05-27 Outpatient Koudela_A MMG MM [place] 03:25:00 03:25:00 0818 [facility] 2021-05-27 2021-05-27 Sanna [facility] [place] - [id number] [facility] 00:00:00 00:00:00 Koudela, Discovery da PA-C: [facility] Medical [address] [address] , Ph. 2020-10-06 2020-10-06 Outpatient Zuniga_F MMG MMG 2019 [place] 09:50:00 09:50:00 1228 [facility] 2020-10-06 2020-10-06 Outpatient Zuniga_F MMG MMG 2020 [place] 09:50:00 09:50:00 0106 [facility] 2020-09-30 2020-09-30 Outpatient Zuniga_F MMG MMG 2019 [place] 03:18:00 03:18:00 1222 [facility] 2020-09-30 2020-09-30 Marie MMG [place] - [id number] [place] 00:00:00 00:00:00 Yolande Guevara MD: [address] [place] [phone] , Ph. 2020-08-27 2020-08-27 Outpatient Zuniga_F MMG MMG 2019 [place] 02:31:00 02:31:00 1118 [facility] 2020-07-30 2020-07-30 Outpatient Zuniga_F MMG MMG 2019 [place] 04:32:00 04:32:00 1021 [facility] 2020-07-30 2020-07-30 Outpatient Zuniga_F MMG MMG 2019 [place] 04:32:00 04:32:00 1022 [facility] 2020-07-30 2020-07-30 Marie MMG [place] - [id number] [place] 00:00:00 00:00:00 Yolande Guevara MD: [address] [place] [address] , Ph. 2019-10-26 2019-10-26 Outpatient Zuniga_F MMG MMG 2019 [place] 11:25:00 11:25:00 1020 Medical Group 2019-10-26 2019-10-26 Outpatient Zuniga_F MMG MM 2019 [place] 11:25:00 11:25:00 0124 Medical Group 2019-09-27 2019-09-27 Outpatient Zuniga_F MMG MM 2019 [place] 09:40:00 09:40:00 0102 Medical Group 2019-09-27 2019-09-27 Outpatient Zuniga_F MMG MM 2019 [place] 09:40:00 09:40:00 0107 Medical Group 2019-09-27 2019-09-27 Marie MM [place] - [id number] [place] 00:00:00 00:00:00 Yolande Guevara Medical MD: [address] [place] [address], [place] [address] , Ph. 2019-08-02 2019-08-02 Marie MM [place] - [id number] [place] 00:00:00 00:00:00 Yolande Guevara MD: [address] [place] [address] [address], [place] [address] , Ph. 2019-07-26 2019-07-26 Marie MM [place] - [id number] [place] 00:00:00 00:00:00 Yolande Guevara MD: [address] [facility] [address], [place] [address] , Ph. 2019-05-28 2019-05-28 Marie MM [place] - [id number] [place] 00:00:00 00:00:00 Yolande Guevara MD: [address] [address], [place] [address] , Ph. 2019-01-24 2019-01-24 Marie MM [place] - [id number] [place] 00:00:00 00:00:00 Tristian Sierra [facility] Medical MD: [address] [facility] [address], [place] [address] , Ph. 2018-10-26 2018-10-26 Marie [facility] [place] - [id number] [facility] 00:00:00 00:00:00 Yolande Guevara Medical MD: [address] [facility] [address], [place] [address] , Ph. Results Test Description Test Time Test Comments Results Result Comments [facility] 2022-02-22 00:00:00 Test Item Value Reference Range Interpretation Comme n[facility] (test code = [facility]) [facility] and Indirect antibody screen panel - Blood 2022-02-08 08:45:00 Test Item Value Reference Range Interpretation Comments Rh [Type] in Blood (test code = 4+ 86206-2) ABO and Rh group panel - Blood A positive (test code = 72665-7) [facility] Differential [facility] - [id number] 08:30:00 Test Item Value Reference Range Interpretation Comments white blood count (test code = 5.4 K/uL 4.0-12.3 white blood count) red blood count (test code = red 3.51 M/uL 3.80-5.80 L blood count) hemoglobin (test code = 10.9 g/dL 11.7-17.2 L hemoglobin) hematocrit (test code = 35.5 % 35.0-51.0 hematocrit) MCV [Entitic volume] (test code = 101.1 fL 83.0-100.0 H 34034-3) mean corpuscular hemoglobin (test 31.1 pg 26.8-33.4 code = mean corpuscular hemoglobin) mean corpuscular HGB conc (test 30.7 g/dL 30.0-35.0 code = mean corpuscular HGB conc) red cell distribution width (test 19.5 % 12.0-14.0 H code = red cell distribution width) platelet count (test code = 377 K/uL 175-450 platelet count) mean platelet volume (test code = 9.3 fL 9.4-12.6 L mean platelet volume) Segmented neutrophils/100 67.0 % 44.7-82.4 leukocytes in Blood (test code = 48587-1) Immature granulocytes [#/volume] 0.03 K/uL 0.00-0.03 H in Blood (test code = 28574-5) lymphocyte% (test code = 19.7 % 10.0-50.0 lymphocyte%) mono % (test code = mono %) 11.6 % 3.9-13.4 eos % (test code = eos %) 0.7 % 0.0-6.4 Basophils/100 leukocytes in 0.4 % 0.2-1.2 Specimen (test code = 56772-9) Band form neutrophils [#/volume] 3.64 K/uL 1.78-5.38 in Blood (test code = 70374-3) Lymphocytes [#/volume] in Specimen 1.07 K/uL 1.32-3.57 L by Automated count (test code = 19598-9) mono # (test code = mono #) 0.63 K/uL 0.30-0.82 eos # (test code = eos #) 0.04 K/uL 0.04-0.54 basophil # (test code = basophil 0.02 K/uL 0.01-0.08 #) NRBC% (test code = NRBC%) 0 /100 WBC 0-0.2 NRBC# (test code = NRBC#) 0 K/uL [facility] 2000 panel - Serum or Plasma 2022-02-08 08:30:00 Test Item Value Reference Range Interpretation Comments glucose (test code = glucose) 92 mg/dL 82-115 Urea nitrogen [Mass/volume] in 18 mg/dL 8-23 Serum or Plasma (test code = 3094-0) osmolality calculated,serum (test 283 mOsm/kg 280-300 code = osmolality calculated,serum) creatinine (test code = 0.40 mg/dL 0.70-1.20 L creatinine) glomerular filtration rate (test >60.00 code = glomerular filtration rate) Urea nitrogen/Creatinine [Mass 45.0 12.0-20.0 H Ratio] in Serum or Plasma (test code = 3097-3) sodium level (test code = sodium 141 mmol/L 135-145 level) Potassium [Moles/volume] in Body 3.3 mmol/L 3.5-5.2 L fluid (test code = 2821-7) chloride level (test code = 110 mmol/L 98-108 H chloride level) CO2 (test code = CO2) 23 mmol/L 21-32 anion gap (test code = anion gap) 11.3 mEq/L 12.0-20.0 L calcium level (test code = 7.5 mg/dL 8.8-10.2 L calcium level) total protein (test code = total 4.5 g/dL 6.6-8.7 L protein) albumin (test code = albumin) 1.7 g/dL 3.5-5.2 L globulin (test code = globulin) 2.8 g/dL 1.5-4.5 A/G ratio (test code = A/G ratio) 0.6 >1.0 bilirubin,total (test code = 0.3 mg/dL 0.0-1.2 bilirubin,total) AST/SGOT (test code = AST/SGOT) 12 U/L 15-40 L Alanine aminotransferase 8 U/L 0-41 [Enzymatic activity/volume] in Serum or Plasma (test code = 1742-6) Alkaline phosphatase [Enzymatic 75 U/L 40-130 activity/volume] in Serum or Plasma (test code = 6768-6) [facility] Center[facility] [Enzymatic activity/volume] in Serum or Plasma 2022-02-08 08:30:00 Test Item Value Reference Range Interpretation Comments lipase (test code = lipase) 9 U/L 13-60 L [facility] CenterDifferential panel, method unspecified - [id number] 00:00:00NeutrophilsBandLymphocyteAtypical LymphMonocyteEosinophilBasophilMetamyelocyteMyelocyteBlastsAbs Neutrophil Count (Man)Abs Lymph Count (Man)Abs Monocyte Count (Man)Abs Eosinophil Count (Man)Abs Basophil Count (Man)Platelet EstimatePlatelet MorphologyAnisocytosisMacrocytosisStomatocyteToxic GranulationToxic Vacuolation [facility] GroupLactate [Mass/volume] in Serum or [id number] 00:00:00 Test Item Value Reference Range Interpretation Comments lactic acid (test code = lactic 1.77 mmol/L 0.5-2.2 acid) [facility] CenterPT/[id number] 00:00:00 Test Item Value Reference Range Interpretation Comments prothrombin time (test code = 11.4 seconds 10.3-12.3 prothrombin time) INR in Blood by Coagulation 1.05 assay (test code = 59007-1) [facility] Centerpartial thromboplastin [id number] 00:00:00 Test Item Value Reference Range Interpretation Comments INR in Blood by Coagulation 26.3 seconds 22.5-37.0 assay (test code = 62486-4) [facility] CenterLactate [Mass/volume] in Serum or [id number] 00:00:00 Test Item Value Reference Range Interpretation Comments lactic acid (test code = lactic 1.77 mmol/L 0.5-2.2 acid) [facility] CenterUrinalysis complete W Reflex Culture panel - Urine 2021-12-29 11:43:00 Test Item Value Reference Range Interpretation Comments Color of Urine by Auto (test yellow code = 48988-2) Appearance of Urine (test code clear clear = 5767-9) Glucose [Presence] in Urine by negative negative Automated test strip (test code = 09374-3) Bilirubin.total [Mass/volume] negative negative in Urine (test code = 1978-6) Ketones [Mass/volume] in Urine =1 negative H by Automated test strip (test code = 91207-7) Specific gravity of Urine by 1.030 1.003-1.030 Automated test strip (test code = 71006-7) blood urine (test code = blood negative negative urine) pH of Urine (test code = 6.000 5-9 2756-5) protein urine (UA) (test code = =1+ (30 negative H protein urine (UA)) Urobilinogen [Presence] in =4.0 0.2-1.0 H Urine (test code = 82920-7) Nitrite [Presence] in Urine by negative negative Test strip (test code = 5802-4) Leukocyte esterase [Presence] negative negative in Urine by Automated test strip (test code = 80456-7) Erythrocytes [#/volume] in =1-5 0-5 Urine by Automated count (test code = 798-9) Leukocytes [#/area] in Urine =1-5 0-5 sediment by Automated count (test code = 79122-7) Epithelial cells [Presence] in <1 0-5 Urine sediment by Light microscopy (test code = 42911-8) Bacteria identified in Urine by none detected none detect Culture (test code = 630-4) Casts [#/area] in Urine =6-10 none detect H sediment by Automated count (test code = 32308-6) urine culture added? (test code no = urine culture added?) [facility] metabolic 2000 panel - Serum or [id number] 12:40:00 Test Item Value Reference Range Interpretation Comments Glucose [Mass/volume] in Serum or 157 mg/dL 82-115 H Plasma (test code = 2345-7) Urea nitrogen [Mass/volume] in 18 mg/dL 8-23 Serum or Plasma (test code = 3094-0) osmolality calculated,serum (test 272 mOsm/kg 280-300 L code = osmolality calculated,serum) creatinine (test code = 0.44 mg/dL 0.70-1.20 L creatinine) glomerular filtration rate (test >60.00 code = glomerular filtration rate) Urea nitrogen/Creatinine [Mass 40.9 12.0-20.0 H Ratio] in Serum or Plasma (test code = 3097-3) sodium level (test code = sodium 133 mmol/L 135-145 L level) potassium level (test code = 3.9 mmol/L 3.5-5.2 potassium level) chloride level (test code = 103 mmol/L 98-108 chloride level) CO2 (test code = CO2) 20 mmol/L 21-32 L anion gap (test code = anion gap) 13.9 mEq/L 12.0-20.0 calcium level (test code = 7.9 mg/dL 8.8-10.2 L calcium level) [facility] metabolic 2000 panel - Serum or [id number] 12:40:00 Test Item Value Reference Range Interpretation Comments Glucose [Mass/volume] in Serum or 157 mg/dL 82-115 H Plasma (test code = 2345-7) Urea nitrogen [Mass/volume] in 18 mg/dL 8-23 Serum or Plasma (test code = 3094-0) osmolality calculated,serum (test 272 mOsm/kg 280-300 L code = osmolality calculated,serum) creatinine (test code = 0.44 mg/dL 0.70-1.20 L creatinine) glomerular filtration rate (test >60.00 code = glomerular filtration rate) Urea nitrogen/Creatinine [Mass 40.9 12.0-20.0 H Ratio] in Serum or Plasma (test code = 3097-3) sodium level (test code = sodium 133 mmol/L 135-145 L level) potassium level (test code = 3.9 mmol/L 3.5-5.2 potassium level) chloride level (test code = 103 mmol/L 98-108 chloride level) CO2 (test code = CO2) 20 mmol/L 21-32 L anion gap (test code = anion gap) 13.9 mEq/L 12.0-20.0 calcium level (test code = 7.9 mg/dL 8.8-10.2 L calcium level) [facility] Group[facility]inal[facility] complete W Reflex Culture panel - Urine 2021-12-24 12:35:00 Test Item Value Reference Range Interpretation Comments Color of Urine by Auto (test code yellow = 84292-0) Appearance of Urine (test code = clear clear 5767-9) Glucose [Mass/volume] in Urine negative negative (test code = 2350-7) bilirubin, urine (test code = small negative H bilirubin, urine) ketone, urine (test code = small, 15 negative H ketone, urine) Specific gravity of Urine by >=1.030 1.003-1.030 Automated test strip (test code = 24877-4) Hemoglobin [Presence] in Urine by negative negative Test strip (test code = 5794-3) pH of Urine (test code = 2756-5) 6.000 5-9 protein urine (UA) (test code = trace negative H protein urine (UA)) Urobilinogen [Presence] in Urine 2.0 E.U./dL 0.2-1.0 (test code = 34205-6) Nitrite [Presence] in Urine by negative negative Test strip (test code = 5802-4) urine leukocyte esterase (test negative negative code = urine leukocyte esterase) Erythrocytes [Presence] in Urine none seen 0-5 (test code = 78600-2) WBC, urine (test code = WBC, =0-2 0-5 urine) Epithelial cells [Presence] in none seen 0-5 Urine sediment by Light microscopy (test code = 89091-4) bacteria, urine (test code = trace none detect bacteria, urine) urine culture added? (test code = no urine culture added?) [facility] - Urine 2021-12-24 12:35:00 Test Item Value Reference Range Interpretation Comments Color of Urine by Auto (test code yellow = 14215-2) Appearance of Urine (test code = clear clear 5767-9) Glucose [Mass/volume] in Urine negative negative (test code = 2350-7) bilirubin, urine (test code = small negative H bilirubin, urine) ketone, urine (test code = small, 15 negative H ketone, urine) Specific gravity of Urine by >=1.030 1.003-1.030 Automated test strip (test code = 59338-8) Hemoglobin [Presence] in Urine by negative negative Test strip (test code = 5794-3) pH of Urine (test code = 2756-5) 6.000 5-9 protein urine (UA) (test code = trace negative H protein urine (UA)) Urobilinogen [Presence] in Urine 2.0 E.U./dL 0.2-1.0 (test code = 35902-6) Nitrite [Presence] in Urine by negative negative Test strip (test code = 5802-4) urine leukocyte esterase (test negative negative code = urine leukocyte esterase) Erythrocytes [Presence] in Urine none seen 0-5 (test code = 93073-1) WBC, urine (test code = WBC, =0-2 0-5 urine) Epithelial cells [Presence] in none seen 0-5 Urine sediment by Light microscopy (test code = 42759-3) bacteria, urine (test code = trace none detect bacteria, urine) urine culture added? (test code = no urine culture added?) [facility] 2000 [facility] - Serum or [id number] 08:54:00 Test Item Value Reference Range Interpretation Comments Glucose [Mass/volume] in Serum or 127 mg/dL 82-115 H Plasma (test code = 2345-7) Urea nitrogen [Mass/volume] in 19 mg/dL 8-23 Serum or Plasma (test code = 3094-0) osmolality calculated,serum (test 272 mOsm/kg 280-300 L code = osmolality calculated,serum) creatinine (test code = 0.42 mg/dL 0.70-1.20 L creatinine) glomerular filtration rate (test >60.00 code = glomerular filtration rate) Urea nitrogen/Creatinine [Mass 45.2 12.0-20.0 H Ratio] in Serum or Plasma (test code = 3097-3) sodium level (test code = sodium 134 mmol/L 135-145 L level) potassium level (test code = 3.5 mmol/L 3.5-5.2 potassium level) chloride level (test code = 104 mmol/L 98-108 chloride level) CO2 (test code = CO2) 18 mmol/L 21-32 L anion gap (test code = anion gap) 15.5 mEq/L 12.0-20.0 calcium level (test code = 7.9 mg/dL 8.8-10.2 L calcium level) [facility] metabolic 2000 panel - Serum or [id number] 08:54:00 Test Item Value Reference Range Interpretation Comments Glucose [Mass/volume] in Serum or 127 mg/dL 82-115 H Plasma (test code = 2345-7) Urea nitrogen [Mass/volume] in 19 mg/dL 8-23 Serum or Plasma (test code = 3094-0) osmolality calculated,serum (test 272 mOsm/kg 280-300 L code = osmolality calculated,serum) creatinine (test code = 0.42 mg/dL 0.70-1.20 L creatinine) glomerular filtration rate (test >60.00 code = glomerular filtration rate) Urea nitrogen/Creatinine [Mass 45.2 12.0-20.0 H Ratio] in Serum or Plasma (test code = 3097-3) sodium level (test code = sodium 134 mmol/L 135-145 L level) potassium level (test code = 3.5 mmol/L 3.5-5.2 potassium level) chloride level (test code = 104 mmol/L 98-108 chloride level) CO2 (test code = CO2) 18 mmol/L 21-32 L anion gap (test code = anion gap) 15.5 mEq/L 12.0-20.0 calcium level (test code = 7.9 mg/dL 8.8-10.2 L calcium level) [facility] CenterClostridioides difficile toxin A+B [Presence] in Stool 2021-12-04 08:38:00 Test Item Value Reference Range Interpretation Comments results (test code = results) Clostridioides difficile 027 presumptive [id number] strain DNA negative [Presence] in Stool by ENRIKE with probe detection (test code = 31520-0) [facility] RNA [Presence] in Respiratory specimen by ENRIKE with probe [id number] 05:34:9674161-0[facility]dB[facility] HospitalUrinalysis complete panel - [id number] 03:41:00 Test Item Value Reference Range Interpretation Comments Color of Urine by Auto dark orange (test code = 64473-6) Appearance of Urine (test SL cloudy clear A code = 5767-9) Glucose [Presence] in negative negative Urine by Automated test strip (test code = 69848-2) Bilirubin.total =1 negative H [Mass/volume] in Urine (test code = 1978-6) Ketones [Mass/volume] in negative negative Urine by Automated test strip (test code = 81785-6) Specific gravity of Urine 1.027 1.003-1.030 by Automated test strip (test code = 59547-3) blood urine (test code = negative negative blood urine) pH of Urine (test code = 5.000 5-9 2756-5) protein urine (UA) (test =1+ (50 negative H code = protein urine (UA)) Urobilinogen [Presence] in =4.0 0.2-1.0 H Urine (test code = 00713-7) Nitrite [Presence] in negative negative Urine by Test strip (test code = 5802-4) Leukocyte esterase negative negative [Presence] in Urine by Automated test strip (test code = 41365-8) Erythrocytes [#/volume] in =1-5 0-5 Urine by Automated count (test code = 798-9) Leukocytes [#/area] in =15-19 0-5 H Urine sediment by Automated count (test code = 32138-6) Epithelial cells =6-10 0-5 [Presence] in Urine sediment by Light microscopy (test code = 78410-7) Bacteria identified in none detected none detect Urine by Culture (test code = 630-4) Casts [#/area] in Urine >50 none detect H sediment by Automated count (test code = 36487-7) urine culture added? (test yes code = urine culture added?) Pathologic casts fine granular (1-5 none detect A [Presence] in Urine by Automated (test code = 50559-0) [facility] GroupB[facility] identified in Urine by [id number] 03:41:00 Test Item Value Reference Range Interpretation Comments Bacteria identified in no growth at 2 days Urine by Culture (test code = 630-4) [facility] GroupLactate [Mass/volume] in Serum or [id number] 02:11:00 Test Item Value Reference Range Interpretation Comments lactic acid (test code = lactic 6.19 mmol/L 0.5-2.2 H acid) [facility] GroupDifferential panel, method unspecified - [id number] 01:00:00 Test Item Value Reference Range Interpretation Comments Neutrophils [#/volume] in Blood by 76 % 37.0-80.0 Automated count (test code = 751-8) Neutrophils.band form/100 6 % 0-3 H leukocytes in Blood by Manual count (test code = 764-1) lymphocyte (test code = 14 % 10-50 lymphocyte) atypical lymph (test code = 0 % atypical lymph) Monocytes [#/volume] in Blood by 4 % 0-12 Manual count (test code = 743-5) eosinophil (test code = 0 % 0-7 eosinophil) Basophils/100 leukocytes in 0 % 0-3 Specimen by Manual count (test code = 09713-1) metamyelocyte (test code = metamyelocyte) myelocyte (test code = myelocyte) promyelocyte (test code = promyelocyte) blasts (test code = blasts) nucleated red blood cell (test code = nucleated red blood cell) abs neutrophil count (man) (test 17.00 K/uL 1.78-5.38 H code = abs neutrophil count (man)) abs lymph count (man) (test code = 2.90 K/uL 1.32-3.57 abs lymph count (man)) abs monocyte count (man) (test 0.80 K/uL 0.30-0.82 code = abs monocyte count (man)) abs eosinophil count (man) (test 0.00 K/uL 0.04-0.54 L code = abs eosinophil count (man)) abs basophil count (man) (test 0.00 K/uL 0.01-0.08 L code = abs basophil count (man)) Platelets [#/volume] in Blood by normal normal Automated count (test code = 777-3) Hypochromia [Presence] in Blood (test code = 25646-1) poikilocytosis (test code = poikilocytosis) Anisocytosis [Presence] in Blood (test code = 34103-1) microcytosis (test code = microcytosis) Macrocytes [Presence] in Blood (test code = 88408-8) [facility] Centerltrop [id number] 01:00:00 Test Item Value Reference Range Interpretation Comments Troponin T.cardiac [Presence] in 0.034 NG/mL 0.000-0.011 H Blood (test code = 87181-2) [facility] CenterCom[facility] 2000 [facility] - Serum or Plasma 2021-12-04 01:00:00 Test Item Value Reference Range Interpretation Comments Glucose [Mass/volume] in Serum or 232 mg/dL 82-115 H Plasma (test code = 2345-7) Urea nitrogen [Mass/volume] in 44 mg/dL 8-23 Serum or Plasma (test code = 3094-0) osmolality calculated,serum (test 293 mOsm/kg 280-300 code = osmolality calculated,serum) creatinine (test code = 2.43 mg/dL 0.70-1.20 H creatinine) glomerular filtration rate (test 26.22 L code = glomerular filtration rate) Urea nitrogen/Creatinine [Mass 18.1 12.0-20.0 Ratio] in Serum or Plasma (test code = 3097-3) sodium level (test code = sodium 137 mmol/L 135-145 level) potassium level (test code = 3.9 mmol/L 3.5-5.2 potassium level) chloride level (test code = 95 mmol/L 98-108 L chloride level) CO2 (test code = CO2) 20 mmol/L 21-32 L anion gap (test code = anion gap) 25.9 mEq/L 12.0-20.0 H calcium level (test code = 9.8 mg/dL 8.8-10.2 calcium level) total protein (test code = total 7.7 g/dL 6.6-8.7 protein) albumin (test code = albumin) 4.3 g/dL 3.5-5.2 globulin (test code = globulin) 3.4 g/dL 1.5-4.5 A/G ratio (test code = A/G ratio) 1.3 >1.0 bilirubin,total (test code = 0.9 mg/dL 0.0-1.2 bilirubin,total) AST/SGOT (test code = AST/SGOT) 20 U/L 15-40 Alanine aminotransferase 10 U/L 0-41 [Enzymatic activity/volume] in Serum or Plasma (test code = 1742-6) Alkaline phosphatase [Enzymatic 66 U/L 40-130 activity/volume] in Serum or Plasma (test code = 6768-6) [facility] W Auto Differential panel - [id number] 00:00:00 Test Item Value Reference Range Interpretation Comments white blood count (test 20.8 K/uL 4.0-12.3 code = white blood count) red blood count (test code 5.24 M/uL 3.80-5.80 = red blood count) hemoglobin (test code = 15.8 g/dL 11.7-17.2 hemoglobin) hematocrit (test code = 46.0 % 35.0-51.0 hematocrit) MCV [Entitic volume] (test 87.8 fL 83.0-100.0 code = 96054-3) mean corpuscular hemoglobin 30.2 pg 26.8-33.4 (test code = mean corpuscular hemoglobin) mean corpuscular HGB conc 34.3 g/dL 30.0-35.0 (test code = mean corpuscular HGB conc) red cell distribution width 12.8 % 12.0-14.0 (test code = red cell distribution width) platelet count (test code = 286 K/uL 175-450 platelet count) mean platelet volume (test 11.1 fL 9.4-12.6 code = mean platelet volume) NRBC% (test code = NRBC%) 0 /100 WBC 0-0.2 NRBC# (test code = NRBC#) 0 K/uL Platelet morphology finding normal RBC morph. normal RBC [Identifier] in Blood (test code = 16763-5) [facility] CenterLipase [Enzymatic activity/volume] in Serum or Plasma 2021-12-04 00:00:00 Test Item Value Reference Range Interpretation Comments lipase (test code = lipase) 22 U/L 13-60 [facility] Centerrapid influenza virus A + B and SARS CoV + SARS CoV 2 Ag panel, IA, upper respiratory [id number] 16:58:00 Test Item Value Reference Range Interpretation Comments RAPID SARS COV (test code = RAPID negative SARS COV) RAPID FLU A (test code = RAPID FLU negative A) RAPID FLU B (test code = RAPID FLU negative B) [facility] CenterRheumatoid factor [Units/volume] in Serum or Plasma 2019-07-27 06:30:00 Test Item Value Reference Range Interpretation Comments rheum factor (test code = rheum 18.8 [IU]/mL 0-14 H factor) [facility] CenterCyclic citrullinated peptide Ab [Units/volume] in Serum by [id number] 06:28:00 Test Item Value Reference Range Interpretation Comments ccp antibodies IgG/IgA (test code = 8 units 0-19 ccp antibodies IgG/IgA) [facility] CenterCom[facility] 2000 [facility] - Serum or Plasma 2019-01-18 06:10:00 Test Item Value Reference Range Interpretation Comments glucose (test code = glucose) 100 mg/dL 82-115 Urea nitrogen [Mass/volume] in 27 mg/dL 8-23 H Serum or Plasma (test code = 3094-0) Osmolality of Serum or Plasma 285 280-300 (test code = 2692-2) creatinine (test code = 0.8 mg/dL 0.70-1.20 creatinine) glomerular filtration rate (test >60.00 code = glomerular filtration rate) Urea nitrogen/Creatinine [Mass 33.8 12-20 H Ratio] in Serum or Plasma (test code = 3097-3) sodium level (test code = sodium 140 mmol/L 135-145 level) Potassium [Moles/volume] in Body 4.4 mmol/L 3.5-5.2 fluid (test code = 2821-7) chloride level (test code = 105 mmol/L 98-108 chloride level) CO2 (test code = CO2) 24 mmol/L 21-32 anion gap (test code = anion gap) 15.4 mEq/L 12-20 calcium level (test code = calcium 9.5 mg/dL 8.8-10.2 level) total protein (test code = total 7.1 g/dL 6.6-8.7 protein) albumin (test code = albumin) 4.1 g/dL 3.5-5.2 globulin (test code = globulin) 3.0 gm/dL A/G ratio (test code = A/G ratio) 1.4 >1.0 bilirubin,total (test code = 0.3 mg/dL 0.0-1.2 bilirubin,total) AST/SGOT (test code = AST/SGOT) 22 U/L 15-40 Alanine aminotransferase 8 U/L 0-41 [Enzymatic activity/volume] in Serum or Plasma (test code = 1742-6) Alkaline phosphatase [Enzymatic 48 U/L 40-130 activity/volume] in Serum or Plasma (test code = 6768-6) [facility] CenterLipid 1996 panel - Serum or [id number] 06:10:00 Test Item Value Reference Range Interpretation Comments cholesterol level (test code = 152 mg/dL 150-200 cholesterol level) triglycerides level (test code = 92 mg/dL <150 triglycerides level) HDL cholesterol (test code = HDL 42 mg/dL >55 L cholesterol) LDL cholesterol direct (test code = 94 mg/dL <100 LDL cholesterol direct) cholesterol risk ratio (test code = 3.619 cholesterol risk ratio) [facility] CenterComplete blood count (hemogram) panel - Blood by Automated [id number] 07:42:00 Test Item Value Reference Range Interpretation Comments white blood count (test code = 4.7 K/uL 4.0-12.3 white blood count) red blood count (test code = red 4.62 M/uL 3.80-5.80 blood count) Hemoglobin [Mass/volume] in Blood 14.7 g/dL 11.67-17.22 (test code = 718-7) hematocrit (test code = hematocrit) 43.3 % 35.0-51.0 Erythrocyte mean corpuscular volume 93.8 fL 78-96 [Entitic volume] (test code = 27462-5) Erythrocyte mean corpuscular 31.9 pg 26.8-33.4 hemoglobin [Entitic mass] (test code = 50277-2) mean corpuscular HGB conc (test 34.0 g/dL 32.3-36.7 code = mean corpuscular HGB conc) red cell distribution width (test 12.0 % 11.6-15.4 code = red cell distribution width) Platelets [#/volume] in Blood (test 184 K/uL 115-328 code = 78815-1) Platelet mean volume [Entitic 10.2 fL 8.4-11.8 volume] in Blood (test code = 64756-6) [facility] CenterHemoglobin A1c [Mass/volume] in [id number] 07:42:00 Test Item Value Reference Range Interpretation Comments Hemoglobin A1c in Blood (test code = 5.6 % 4.0-6.0 01290-5) [facility] CenterCom[facility] 2000 panel - Serum or Plasma 2018-10-25 07:42:00 Test Item Value Reference Range Interpretation Comments Glucose [Mass/volume] in Serum or 109 mg/dL 82-115 Plasma (test code = 2345-7) Urea nitrogen [Mass/volume] in 17 mg/dL 8-23 Serum or Plasma (test code = 3094-0) Osmolality of Serum or Plasma 289 280-300 (test code = 2692-2) creatinine (test code = 0.9 mg/dL 0.70-1.20 creatinine) glomerular filtration rate (test >60.00 code = glomerular filtration rate) Urea nitrogen/Creatinine [Mass 18.9 12-20 Ratio] in Serum or Plasma (test code = 3097-3) sodium level (test code = sodium 144 mmol/L 135-145 level) potassium level (test code = 4.4 mmol/L 3.5-5.2 potassium level) chloride level (test code = 107 mmol/L 98-108 chloride level) CO2 (test code = CO2) 26 mmol/L 21-32 anion gap (test code = anion gap) 15.4 mEq/L 12-20 calcium level (test code = calcium 9.4 mg/dL 8.8-10.2 level) total protein (test code = total 7.0 g/dL 6.6-8.7 protein) albumin (test code = albumin) 4.2 g/dL 3.5-5.2 globulin (test code = globulin) 2.8 gm/dL A/G ratio (test code = A/G ratio) 1.5 >1.0 bilirubin,total (test code = 0.4 mg/dL 0.0-1.2 bilirubin,total) AST/SGOT (test code = AST/SGOT) 19 U/L 15-40 Alanine aminotransferase 13 U/L 0-41 [Enzymatic activity/volume] in Serum or Plasma (test code = 1742-6) Alkaline phosphatase [Enzymatic 52 U/L 40-130 activity/volume] in Serum or Plasma (test code = 6768-6) [facility] CenterLip[facility] 1996 panel - Serum or [id number] 07:42:00 Test Item Value Reference Range Interpretation Comments cholesterol level (test code = 183 mg/dL 150-200 cholesterol level) triglycerides level (test code = 71 mg/dL <150 triglycerides level) HDL cholesterol (test code = HDL 45 mg/dL >55 L cholesterol) LDL cholesterol direct (test code = 137 mg/dL <100 H LDL cholesterol direct) cholesterol risk ratio (test code = 4.066 cholesterol risk ratio) [facility]
[2022-06-02 16:51] LABS: Absolute Lymphocytes (CBC) 0.7 K/uL (0.7-4.9); Hematocrit 24.3 % (39.6-49.0); Lymphocytes % 13.3 % (15.3-44.8); MCV 89.2 fL (80-100); MPV 7.5 fL (7.6-11.3); RBC Red Blood Cell Count 2.73 M/uL (4.33-5.43)
[2022-06-02 17:08] LABS: AST/SGOT 9 U/L (15-37); Albumin 2.2 g/dL (3.4-5.0); Alkaline Phosphatase 75 U/L (45-117); BUN Blood Urea Nitrogen 71 mg/dL (7-18); Bicarbonate 23 mmol/L (21-32); Bilirubin Total 0.3 mg/dL (0.2-1.0); Glomerular Filtration Rate 14 ml/min (=/>90); Glucose Level 96 mg/dL (74-106); Potassium 5.4 mmol/L (3.5-5.1); Protein, Total 7.8 g/dL (6.4-8.2); Sodium Level 142 mmol/L (136-145)
[2022-06-02 17:09] LABS: ALT/SGPT < 10 U/L (12-78)
--- NOTE | 2022-06-02 18:03 | RAD REPORT ---
EXAM DESCRIPTION: CTAbdomen Pelvis Wo Contrast - 06/02/2022 5:41 pm CLINICAL HISTORY: hematuria COMPARISON: CT 03/20/2022 TECHNIQUE: CT of the abdomen and pelvis was performed. All CT scans are performed using dose optimization technique as appropriate and may include automated exposure control or mA/KV adjustment according to patient size. FINDINGS: Lower chest: Coronary artery calcifications. Small pleural effusions. Liver: Too small to characterize liver lesions which are likely benign. Biliary: No biliary ductal dilatation. Stomach: Gastrostomy tube in place. Duodenum: No significant focal abnormality. Pancreas: No significant abnormality. Spleen: No significant abnormality. Adrenal: No suspicious lesions. Kidney/ureter: Bilateral hydro nephrosis. Punctate stone in the left kidney. Retroperitoneum: No retroperitoneal adenopathy. Vascular: No aneurysm. Bowel: Rectal wall thickening. Ehsan's pouch. Ostomy in the right lower quadrant.. Peritoneum: Ascites is present. Bladder: Severe circumferential bladder wall thickening. Reproductive: No adnexal masses. Bones: No acute fracture. Multilevel degenerative changes are present in the spine. Other: Body wall edema. IMPRESSION: Bilateral hydroureteronephrosis which may be secondary to bladder outlet obstruction. Th ough the bladder is only modestly distended, the wall thickening is severe. Consider Gomez catheter p lacement. Rectal wall thickening which may reflect a colitis. The patient has a Ehsan's pouch. Ascites which is nonspecific. It may be secondary to anasarca.
[2022-06-02 18:14] LABS: Urine Bacteria <20 /HPF (<20); Urine RBC >50 /HPF (None Seen)
--- NOTE | 2022-06-02 18:37 | ER ---
Nurse's Notes [facility] Name: Leonel Dejesus Jr Age: 76 yrs Sex: Male : 1945 Arrival Date: 06/02/2022 Time: 13:37 Bed 25 Private MD: Diagnosis: Acute kidney failure, unspecified;Acute cystitis with hematuria;Hyperkalemia Presentation: 06/02 14:00 Chief complaint: Patient states: it is reported the patient has been on Eliquis, but ap3 was taken off yesterday. states that the patient woke up with blood in his brief with his urine. When she called his PCP, they informed her to come to the ED for further evaluation. Coronavirus screen: At this time, the client does not indicate any symptoms associated with coronavirus-19. Ebola Screen: No symptoms or risks identified at this time. Initial Sepsis Screen: Does the patient meet any 2 criteria? No. Patient's initial sepsis screen is negative. Does the patient have a suspected source of infection? No. Patient's initial sepsis screen is negative. Risk Assessment: Do you want to hurt yourself or someone else? Patient reports no desire to harm self or others. Onset of symptoms was June 01, 2022. 14:00 Method Of Arrival: Wheelchair ap3 14:00 Acuity: PHILLIP 3 ap3 Triage Assessment: 14:06 General: Appears in no apparent distress. Behavior is calm, cooperative. Pain: Denies ap3 pain. Neuro: Level of Consciousness is awake, alert, Oriented to person, place, time. Cardiovascular: Patient's skin is warm and dry. Respiratory: Airway is patent Respiratory effort is even, unlabored, Respiratory pattern is regular, symmetrical. : Parent/caregiver report the patient having bloody urination. Historical: - Allergies: 14:04 No Known Allergies; ap3 - PMHx: 14:04 PEG tube; DVT; hypotension; CAD; ap3 - PSHx: 14:04 ileostomy; ap3 - Immunization history:: Client reports receiving the 2nd dose of the Covid vaccine. - Social history:: Smoking status: Patient denies any tobacco usage or history of. Screenin:07 Abuse screen: Denies threats or abuse. Nutritional screening: patient has PEG tube to ap3 begin PEG tube feeding. Tuberculosis screening: No symptoms or risk factors identified. 15:00 Fall Risk No fall in past 12 months (0 pts). Secondary diagnosis (15 points) impaired tp1 mobility, IV access (20 points). Ambulatory Aid- None/Bed Rest/Nurse Assist (0 pts). Gait- Impaired (20 pts.). Mental Status- Oriented to own ability (0 pts). Total Saxena Fall Scale indicates High Risk Score (45 or more points). Fall prevention measures have been instituted. Side Rails Up X 2 Placed Close to Nursing Station Frequent Obs/Assessments Occuring. Assessment: 15:00 General: Appears in no apparent distress. malnourished, Behavior is calm, drowsy, tp1 quiet. Pain: Pain: Complains of pain in right hip and lower back Pain currently is 10 out of 10 on a pain scale. Pain began a few months Is continuous. Cardiovascular: Patient's skin is warm and dry. Respiratory: Airway is patent Respiratory effort is even, unlabored. EENT: No signs and/or symptoms were reported regarding the EENT system. Musculoskeletal: Capillary refill < 3 seconds, in bilateral fingers. toes. limited ROM to bilateral upper extremities. unable to move lower extremities. cachexia noted. swelling to the right knee noted. 15:00 Neuro: Level of Consciousness is awake, alert, obeys commands, Oriented to person, tp1 place, time, situation. GI: Colostomy site is clean and dry. Ostomy appliance is intact. : blood in brief Denies burning with urination, inability to void, pain. Derm: (multiple) skin tears to the R arm near elbow. 16:00 Reassessment: Patient appears in no apparent distress at this time. No changes from tp1 previously documented assessment. Patient and/or family updated on plan of care and expected duration. Pain level reassessed. Patient is alert, oriented x 3, equal unlabored respirations, skin warm/dry/pink. assisted with brief change. 17:13 Reassessment: Patient appears in no apparent distress at this time. No changes from vg1 previously documented assessment. resting quietly with eyes closed. 18:13 Reassessment: Patient appears in no apparent distress at this time. No changes from tp1 previously documented assessment. resting in bed. Attempted to contact regarding plan of care. Vital Signs: 14:00 BP 86 / 72; Pulse 84; Resp 18; Temp 97.1; Pulse Ox 100% ; Weight 68.04 kg; Height 5 ft. ap3 11 in. (180.34 cm); 15:00 BP 139 / 114; Pulse 68; Resp 13; Pulse Ox 100% ; tp1 16:00 BP 120 / 84; Pulse 69; Resp 13; Pulse Ox 100% on R/A; tp1 17:00 BP 128 / 75; Pulse 64; Resp 14; Pulse Ox 100% ; vg1 18:00 BP 128 / 75; Pulse 67; Resp 13; Pulse Ox 100% ; tp1 14:00 Body Mass Index 20.92 (68.04 kg, 180.34 cm) ap3 ED Course: 13:37 Patient arrived in ED. am2 13:48 Sandi Kenny FNP-C [facility] kb 13:48 Timothy Hernandez MD is Attending Physician. kb 14:03 Triage completed. ap3 14:07 Arm band placed on right wrist. ap3 14:54 Natalia Villatoro, BRIANDA is Primary Nurse. tp1 15:00 Client placed on continuous cardiac and pulse oximetry monitoring. NIBP monitoring tp1 applied. 16:00 Missed attempt(s): 22 gauge in right forearm. vg1 16:02 Patient has correct armband on for positive identification. Bed in low position. Call tp1 light in reach. Side rails up X2. 16:36 Inserted saline lock: 20 gauge in left antecubital area, using aseptic technique. vg1 ,using aseptic technique. completed by Nhan change management manager Blood collected. 16:50 Straight cath inserted, using sterile technique, 16 Fr. Specimen obtained. Returned vg1 bloody urine. Patient tolerated well. 17:43 CT Abd/Pelvis - Without Contrast In Process Unspecified. EDMS 18:35 Rg Johns MD is Hospitalizing Provider. kb 18:45 Gomez cath inserted, using sterile technique, 16 Fr., by ny, balloon inflated, to tp1 gravity drainage. Administered Medications: 18:45 Drug: Rocephin (cefTRIAXone) 1 grams Route: IV; Rate: calculated rate; Site: left tp1 antecubital; 19:23 Follow up: IV Status: Completed infusion; IV Intake: 50ml lc2 19:45 Drug: Insulin Regular Human 5 units {Co-Signature: bb (Sraah Estevez RN).} Route: IVP; lc2 Site: left antecubital; 19:49 Drug: D50W 50 ml Route: IVP; Site: left antecubital; lc2 Medication: 14:00 VIS not applicable for this client. tp1 Intake: 19:23 IV: 50ml; Total: 50ml. lc2 Outcome: 18:35 Decision to Hospitalize by Provider. kb 06/03 15:19 Patient left the ED. tw2 Signatures: Dispatcher [employer] EDMS Sandi Kenny, NANCY RUBI-Manjit Ackerman, RN RN lc2 Cheryl Montes RN RN tw2 Jonelle Rios Amanda, RN RN ap3 Mary Jett RN RN vg1 Natalia Villatoro RN RN tp1 Sarah Estevez RN bb Corrections: (The following items were deleted from the chart) 06/02 16:03 14:00 Fall Risk No fall in past 12 months (0 pts). Secondary diagnosis (15 points) tp1 impaired mobility, IV access (20 points). Ambulatory Aid- None/Bed Rest/Nurse Assist (0 pts). Gait- Impaired (20 pts.). Mental Status- Oriented to own ability (0 pts). Total Saxena Fall Scale indicates High Risk Score (45 or more points). Fall prevention measures have been instituted. Side Rails Up X 2 Placed Close to Nursing Station Frequent Obs/Assessments Occuring tp1 16:03 13:00 BP 139 / 114; Pulse 68bpm; Resp 13bpm; Pulse Ox 100%; tp1 tp1 16:03 14:00 BP 120 / 84; Pulse 69bpm; Resp 13bpm; Pulse Ox 100% RA; tp1 tp1 16:04 15:58 Reassessment: Patient appears in no apparent distress at this time. No changes tp1 from previously documented assessment. Patient and/or family updated on plan of care and expected duration. Pain level reassessed. Patient is alert, oriented x 3, equal unlabored respirations, skin warm/dry/pink. assisted with brief change tp1 16:33 15:00 Musculoskeletal: Capillary refill < 3 seconds, in bilateral fingers. toes. tp1 limited ROM to bilateral upper extremities. unable to move lower extremities tp1 16:33 14:00 Reassessment: Patient appears in no apparent distress at this time. No changes tp1 from previously documented assessment. Patient and/or family updated on plan of care and expected duration. Pain level reassessed. Patient is alert, oriented x 3, equal unlabored respirations, skin warm/dry/pink. assisted with brief change tp1 16:33 14:00 Reassessment: Patient appears in no apparent distress at this time. No changes tp1 from previously documented assessment. Patient and/or family updated on plan of care and expected duration. Pain level reassessed. Patient is alert, oriented x 3, equal unlabored respirations, skin warm/dry/pink. at bedside. tp1 16:34 14:00 Reassessment: Patient appears in no apparent distress at this time. No changes tp1 from previously documented assessment. Patient and/or family updated on plan of care and expected duration. Pain level reassessed. Patient is alert, oriented x 3, equal unlabored respirations, skin warm/dry/pink. assisted with brief change tp1 16:34 16:00 Reassessment: Patient appears in no apparent distress at this time. No changes tp1 from previously documented assessment. Patient and/or family updated on plan of care and expected duration. Pain level reassessed. Patient is alert, oriented x 3, equal unlabored respirations, skin warm/dry/pink. at bedside. tp1 18:51 18:13 Reassessment: Patient appears in no apparent distress at this time. No changes tp1 from previously documented assessment. resting in bed tp1 19:17 15:00 Musculoskeletal: Capillary refill < 3 seconds, in bilateral fingers. toes. tp1 limited ROM to bilateral upper extremities. unable to move lower extremities. cachexia noted tp1
--- NOTE | 2022-06-02 18:37 | EDPHYS ---
Physician Documentation [facility] Name: Leonel Dejesus Jr Age: 76 yrs Sex: Male : 1945 Arrival Date: 06/02/2022 Time: 13:37 Bed 25 Private MD: ED Physician Timothy Hernandez HPI: 06/03 00:04 This 76 yrs old Male presents to ER via Wheelchair with complaints of blood in kb urine. 00:04 The patient presents with urinary symptoms, hematuria. Onset: The symptoms/episode kb began/occurred 3 week(s) ago, and became worse today. Modifying factors: The symptoms are alleviated by nothing, the symptoms are aggravated by nothing. Associated signs and symptoms: Pertinent positives: hematuria, Pertinent negatives: abdominal pain, constipation, diarrhea, dysuria, fever, nausea, vomiting. Severity of symptoms: At their worst the symptoms were moderate, in the emergency department the symptoms are unchanged. The patient has not experienced similar symptoms in the past. The patient has been recently seen by a physician:. reports patient has had hematuria since getting out of the group home approximately 3 weeks ago. States he was seen by PCP yesterday and told to quit his Eliquis. Hematuria was worse today so she brought him in.. Historical: - Allergies: 06/02 14:04 No Known Allergies; ap3 - PMHx: 14:04 PEG tube; DVT; hypotension; CAD; ap3 - PSHx: 14:04 ileostomy; ap3 - Immunization history:: Client reports receiving the 2nd dose of the Covid vaccine. - Social history:: Smoking status: Patient denies any tobacco usage or history of. ROS: 06/03 00:03 Constitutional: Negative for fever, chills, and weight loss. kb : Positive for hematuria. All other systems are negative. Exam: 00:03 Constitutional: This is a well developed, well nourished patient who is awake, alert, kb and in no acute distress. Head/Face: Normocephalic, atraumatic. ENT: Moist Mucous membranes Cardiovascular: Regular rate and rhythm with a normal S1 and S2. No gallops, murmurs, or rubs. No pulse deficits. Respiratory: Respirations even and unlabored. No increased work of breathing. Talking in full sentences MS/ Extremity: Pulses equal, no cyanosis. Neurovascular intact. Full, normal range of motion. Neuro: Awake and alert, GCS 15, oriented to person, place, time, and situation. Moves all extremities. Normal gait. 00:03 Abdomen/GI: Exam negative for acute changes. 00:03 Skin: bruising and skin tears to upper extremities. Vital Signs: 06/02 14:00 BP 86 / 72; Pulse 84; Resp 18; Temp 97.1; Pulse Ox 100% ; Weight 68.04 kg; Height 5 ft. ap3 11 in. (180.34 cm); 15:00 BP 139 / 114; Pulse 68; Resp 13; Pulse Ox 100% ; tp1 16:00 BP 120 / 84; Pulse 69; Resp 13; Pulse Ox 100% on R/A; tp1 17:00 BP 128 / 75; Pulse 64; Resp 14; Pulse Ox 100% ; vg1 18:00 BP 128 / 75; Pulse 67; Resp 13; Pulse Ox 100% ; tp1 14:00 Body Mass Index 20.92 (68.04 kg, 180.34 cm) ap3 Procedures: 06/03 02:09 Peripheral line: by aseptic technique a peripheral line was placed in the left external sarmad jugular vein. MDM: 06/02 14:10 Patient medically screened. kb 18:34 Data reviewed: vital signs, nurses notes. Data interpreted: Pulse oximetry: on room air kb is 100 %. Interpretation: normal. Counseling: I had a detailed discussion with the patient and/or guardian regarding: the historical points, exam findings, and any diagnostic results supporting the discharge/admit diagnosis, lab results, radiology results, the need for further work-up and treatment in the hospital. Physician consultation: Kehinde Soria MD was contacted at 18:34, regarding consult, patient's condition, and will see patient in inpatient room. 18:34 Physician consultation: Marge CAPUTO was contacted at 18:34, regarding admission, to the medical/surgical unit. patient's condition, and will see patient in ED. 06/02 14:20 Order name: CBC with Diff; Complete Time: 17:10 kb 06/02 14:20 Order name: CMP; Complete Time: 17:10 kb 06/02 14:20 Order name: Urine Microscopic Only; Complete Time: 18:16 kb 06/02 18:17 Order name: Urine Culture EDTN 06/02 19:56 Order name: SARS RAPID; Complete Time: 21:09 mw2 06/03 02:45 Order name: CBC with Automated Diff EDTN 06/02 17:11 Order name: CT Abd/Pelvis - Without Contrast; Complete Time: 18:08 kb 06/03 02:56 Order name: Basic Metabolic Panel EDTN 06/03 02:56 Order name: Phosphorus EDTN 06/03 02:56 Order name: Lipid Profile EDTN 06/03 02:56 Order name: Magnesium EDTN 06/03 05:51 Order name: Urinalysis EDTN 06/02 14:20 Order name: IV Saline Lock; Complete Time: 16:36 kb 06/02 14:20 Order name: Labs collected and sent; Complete Time: 16:36 kb 06/02 14:20 Order name: Urine Dipstick-Ancillary (obtain specimen); Complete Time: 16:58 kb 06/02 18:09 Order name: Issa; Complete Time: 19:23 kb 06/02 19:37 Order name: Misc. Order: irrigate issa kb Administered Medications: 18:45 Drug: Rocephin (cefTRIAXone) 1 grams Route: IV; Rate: calculated rate; Site: left tp1 antecubital; 19:23 Follow up: IV Status: Completed infusion; IV Intake: 50ml lc2 19:45 Drug: Insulin Regular Human 5 units {Co-Signature: bb (Sarah Estevez RN).} Route: IVP; lc2 Site: left antecubital; 19:49 Drug: D50W 50 ml Route: IVP; Site: left antecubital; lc2 Disposition: 06/04 11:19 Co-signature as Attending Physician, Timothy Hernandez MD I agree with the assessment and kdr plan of care. Disposition Summary: 06/02/22 18:35 Hospitalization Ordered Hospitalization Status: Inpatient Admission kb Provider: Rg Johns Condition: Stable kb Problem: new kb Symptoms: are unchanged kb Bed/Room Type: Standard kb Location: Telemetry/MedSurg (Inpatient)(06/03/22 14:24) dw Room Assignment: 405(06/03/22 14:45) tw2 Diagnosis - Acute kidney failure, unspecified kb - Acute cystitis with hematuria kb - Hyperkalemia kb Forms: - Medication Reconciliation Form kb - SBAR form kb Signatures: Dispatcher [employer] EDMS Sandi Kenny, DATA CONTROL CLERK-C DATA CONTROL CLERK-Ckb Naomi Locke, RN RN Alan Villanueva MD MD cha Rittger, Kevin, MD MD kdr Cabug, Larilyn RN RN lc2 Cheryl Montes, RN RN tw2 Jonelle Tripathi, RN RN ap3 Evelia Rick RN RN eb1 Natalia Villatoro RN RN tp1 Sarah Estevez RN bb Corrections: (The following items were deleted from the chart) 06/02 17:34 14:24 Abdomen Pelvis W Con+CT.RAD.BRZ ordered. EDMS EDMS 20:12 18:35 Telemetry/MedSurg (Inpatient) kb eb1 20:12 18:35 kb eb1 06/03 14:24 08 20:12 [facility] ER HOLD eb1 06/03 14:24 08 20:12 ERHOLD- eb1 06/03 14:45 14:24 422 [facility]2
[2022-06-02] MEDS ORDERED: NA CHLORIDE 0.9% 50 ML ONE (18:43)
[2022-06-02] MEDS ORDERED: CEFTRIAXONE 1000 MG/VIAL ONE (18:43)
[2022-06-02] MEDS ORDERED: DEXTROSE 10%-WATER 500 ML IV ONE (19:47)
[2022-06-02] MEDS ORDERED: INSULIN -REGULAR HUMAN 50 UNIT/0.5 ML ML ONE (19:47)
[2022-06-02] MEDS ORDERED: NA CHLORIDE 0.9% 1,000 ML ONE (20:01)
[2022-06-02] MEDS ORDERED: LIDOCAINE VISCOUS 2% SOLN 15 ML UDC ONE (20:08)
--- NOTE | 2022-06-02 20:16 | P.HP ---
Certification for Inpatient Patient admitted to: Inpatient With expected LOS: >2 Midnights Patient will require the following post-hospital care: None Practitioner: I am a practitioner with admitting privileges, knowledge of patient current condition, hospital course, and medical plan of care. Services: Services provided to patient in accordance with Admission requirements found in Title 42 Section 412.3 of the Code of Federal Regulations Patient History Date of Service: 06/03/22 Reason for admission: WINST[place], Hematuria, UTI History of Present Illness: Patient is a 76-year-old male with history of ileostomy, PEG, anemia, and DVT who presented to the ED with complaints of blood in his urine. Patient recently came home from inpatient rehab (recovering from ileostomy in March) and has home health. noticed when she was changing his brief that there was blood in it yesterday. They called their PCP who recommended to stop taking his Eliquis. In the ED, his labs are significant for hemoglobin 8.1, hematocrit 24.3, potassium 5.4, creatinine 4.2, BUN 71, urine positive for UTI. CT abdomen pelvis showed "Bilateral hydroureteronephrosis which may be secondary to bladder outlet obstruction. Though the bladder is only modestly distended, the wall thickening is severe." Issa was inserted and had flor blood output. He was given Rocephin, insulin, D50, and albuterol in the ED. He was assessed by urology who changed his catheter as it was full of clots and irrigated with viscous lidocaine and recommended irrigation every 4 hours, antibiotics, and renal US in a few days after hydronephrosis has resolved. Patient is admitted for further evaluation and treatment. Allergies No Known Allergies Allergy (Verified 06/02/22 21:24) Home medications list reviewed: Yes - Past Medical/Surgical History Diabetic: No -: DVT -: Colectomy with Ileostomy -: PEG Psychosocial/ Personal History: Patient is . - Social History Smoking Status: Never smoker Alcohol use: No CD- Drugs: No Caffeine use: Yes Place of Residence: Home Review of Systems Genitourinary: Hematuria, Retention Physical Examination - Physical Exam General: Alert, In no apparent distress, Other (Frail) HEENT: Atraumatic, PERRLA, EOMI, Sclerae nonicteric Neck: Supple, 2+ carotid pulse no bruit, No LAD, Without JVD or thyroid abnormality Respiratory: Clear to auscultation bilaterally, Normal air movement Cardiovascular: Regular rate/rhythm, Normal S1 S2 Gastrointestinal: Normal bowel sounds, No tenderness Musculoskeletal: No tenderness Integumentary: No rashes Neurological: Normal speech, Normal strength at 5/5 x4 extr, Normal tone, Normal affect Urinary: Issa catheter - Studies Laboratory Data (last 24 hrs) 06/02/22 16:35: Sodium 142, Potassium 5.4 H, BUN 71 H, Creatinine 4.24 H, Glucose 96, Total Bilirubin 0.3, AST 9 L, ALT < 10 L, Alkaline Phosphatase 75 06/02/22 16:35: WBC 5.60, Hgb 8.1 L, Hct 24.3 L, Plt Count 327 Assessment and Plan - Problems (Diagnosis) (1) Acute renal failure Current Visit: Yes Status: Acute Qualifiers: Acute renal failure type: unspecified Qualified Code(s): N17.9 - Acute kidney failure, unspecified (2) UTI (urinary tract infection) Current Visit: Yes Status: Acute Qualifiers: Urinary tract infection type: acute cystitis Hematuria presence: with hematuria Qualified Code(s): N30.01 - Acute cystitis with hematuria (3) Hydronephrosis Current Visit: Yes Status: Acute Qualifiers: Hydronephrosis type: other Qualified Code(s): N13.39 - Other hydronephrosis (4) Anemia Current Visit: Yes Status: Chronic Qualifiers: Anemia type: unspecified type Qualified Code(s): D64.9 - Anemia, unspecified (5) Hyperkalemia Current Visit: Yes Status: Acute - Plan -Continue IV cefepime as patient has had several hospitalizations recently. Fol low urine culture. -Irrigate issa catheter every 4 hours and monitor output. -Potassium was elevated at 5.4. No changes noted to EKG. He was given insulin, D50, and albuterol. Recheck in AM. -Gentle IV hydration. -[place] PRN pain. -Physical therapy consult. -Monitor kidney function, hold nephrotoxic agents. -Nephrology and urology consulted. -Patient is chronically anemic and has required PRBC transfusions in past. Current hgb is 8.1. Monitor CBC daily. Transfuse if < 7. -PEG tube was placed a few months ago as patient was not eating. He now eats regular diet PO. PCP was considering starting tube feeds to supplement diet. Renal diet ordered. -Ileostomy working properly. Patient has no complaints. Monitor output. -Reconcile and continue home medications -Monitor and replete electrolytes per protocol. -SCDs for VTE prophylaxis. -Full code Discharge Plan: Home Plan to discharge in: Greater than 2 days - Advance Directives Does patient have a Living Will: No Does patient have a Durable POA for Healthcare: No - Code Status/Comfort Care Code Status Assessed: Yes (Full) Critical Care: No Time Spent Managing Pts Care (In Minutes): 50
[2022-06-02 21:05] LABS: SARS-CoV-2 Antigen Rapid Res Negative (Negative)
[2022-06-02] MEDS ORDERED: NA CHLORIDE 0.9% 1,000 ML IV SCH (21:25)
[2022-06-02] MEDS ORDERED: ONDANSETRON 4 MG/2 ML VIAL IV PRN (21:25)
[2022-06-02] MEDS ORDERED: ACETAMINOPHEN 500 MG TAB PO PRN (21:25)
[2022-06-02] MEDS ORDERED: MORPHINE 2 MG/ML SYR IV PRN (22:28)
[2022-06-02 23:33] VITALS: BMI 20.9
[2022-06-02] MEDS ORDERED: HYDROCODONE/APAP 7.5/325 MG TAB ONE (23:44)
[2022-06-03] MEDS ORDERED: NA CHLORIDE 0.9% 1,000 ML ONE ×3 (02:29→14:06)
[2022-06-03 02:43] LABS: Absolute Lymphocytes (CBC) 0.9 K/uL (0.7-4.9); Hematocrit 23.3 % (39.6-49.0); Lymphocytes % 12.4 % (15.3-44.8); MPV 7.4 fL (7.6-11.3); RBC Red Blood Cell Count 2.65 M/uL (4.33-5.43)
[2022-06-03 02:55] LABS: Phosphorus 6.1 mg/dL (2.5-4.9); Potassium 5.3 mmol/L (3.5-5.1)
[2022-06-03] MEDS ORDERED: SOD POLYSTYREN SUL 15 GM/60 ML UCUP PO ONE (05:43)
[2022-06-03 05:48] LABS: Urine Clarity Turbid (Clear); Urine Color Red (Yellow)
[2022-06-03 05:49] LABS: Specific Gravity ND (1.005-1.030); Urine Bilirubin ND (Negative); Urine Blood ND (Negative); Urine Glucose ND (Negative); Urine Protein ND (Negative); Urine Urobilinogen ND mg/dL (0.2-1.0); Urine pH ND (5.0-7.0)
[2022-06-03 05:51] LABS: Urine Bacteria <20 /HPF (<20); Urine RBC >50 /HPF (None Seen)
[2022-06-03] MEDS ORDERED: SOD POLYSTYREN SUL 15 GM/60 ML UCUP ONE (06:45)
[2022-06-03] MEDS ORDERED: NA CHLORIDE 0.9% 100 ML ONE (08:00)
[2022-06-03] MEDS ORDERED: CEFEPIME 1 GM/VIAL ONE (08:00)
[2022-06-03] MEDS ORDERED: CEFEPIME 1 GM in NA CHLORIDE 0.9% 100 ML IV SCH ×2 (09:00→21:00)
--- NOTE | 2022-06-03 10:57 | CON ---
Reason For Consultation: Gross hematuria and acute kidney injury. 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 He had recently returned home from inpatient rehabilitation following the ileostomy placement in March, and he is under the care of home health. The blood in the urine started on Tuesday, and their PCP recommended he stop taking the Eliquis. He had been seen in the emergency department back in March where a catheter was in place at the time of imaging performed there apparently because of issues with voiding/retention of urine. That catheter was subsequently removed. Past Medical History: As above. Social History: He never smoked. Laboratory Analyses: 06/02/2022; white count 5.6, hemoglobin 8.1, platelet count 327,000, creatinine 4.24. 03/20/2022, laboratory analyses; creatinine 0.38, proBNP 239, and troponin I 184.1. Review of CT from 03/20/2022 revealed the presence of mild pelviectasis with a catheter in the bladder. Urine culture no growth. 06/02/2022, review of CT reveals moderate pelviectasis with mild caliectasis and an extremely thickened bladder without catheter in place. There was also air noted within the bladder. Physical Examination: General: The patient is awake and alert, lying in the stretcher, in no acute distress. Abdomen: Soft and somewhat scaphoid with an ileostomy in the right lower quadrant that was pink and patent. Genitalia: Uncircumcised without lesion and orthotopic meatus with 16-Cameroonian urethral Gomez catheter in place and dark fruit punch colored urine draining from within. Because of the significant hematuria noted and clots within the drainage tube, the potential for clotting of the 16-Cameroonian catheter was high; so I recommended exchange of the catheter to an 18-Cameroonian or 20-Cameroonian catheter and irrigation as necessary. Urethral Gomez Catheter Exchange And Bladder Irrigation Procedure Note: The patient's indwelling 16-Cameroonian catheter was removed after deflating the balloon with ease. His genitalia were prepped with Betadine and draped in standard fashion, and lidocaine jelly was injected intraurethrally for local anesthesia. I was then able to pass an 18-Cameroonian catheter into his bladder with ease and placed 10 cc of sterile water in the balloon. I then utilized normal saline and a catheter tip syringe to irrigate the catheter with about 400 cc of the fluid until the urine was essentially minimally peak. The urine began to clear after 150 to 180 cc of irrigation had been performed, and there were only a few clots retrieved. The catheter was then placed to gravity drainage and continued to drain light pink fluid/urine. The patient tolerated the procedure reasonably well and there were no obvious complications. Assessment And Recommendations: A 76-year-old gentleman with failure to thrive following bowel obstruction with ileostomy creation and PEG tube placement with anemia and history of deep vein thrombosis, previously on Eliquis, stopped because of gross hematuria with extremely thickened detrusor and bilateral pelvo-caliectasis with WINSTON and associated with air in the bladder concerning for the possibility of either an anaerobic bacteria versus a fistula, or potentially from prior catheterization, in a patient with a Ehsan's pouch. - I recommend intermittent manual irrigation using a 60 cc catheter tip syringe and normal saline if the urine becomes more bloody than light pink. - Given his multiple prior hospitalizations and emergency department visits with catheterization, I recommend cefepime and antimicrobial therapy for potential nosocomial organisms while awaiting the results of urine culture sent from within the emergency department. - Recommend repeat renal ultrasound in 2-3 days to assess for resolution of the hydronephrosis, where if persistent hydronephrosis is noted, without improvement, consideration may be needed for percutaneous nephrostomy tube placement if there has not been significant improvement in resolution of his acute kidney injury. - Because of the gross hematuria noted and the air seen in the bladder, he will also require outpatient cystoscopic evaluation to rule out intravesical lesion causing the gross hematuria. We also would want to rule out the potential for fistula, especially if pneumaturia persists. - f/u on discharge within 3 weeks in Urology clinic for cystoscopy and further eval as indicated WR/MODL Voice ID: [id number] Report ID: [id number] ANASTASIIA
[2022-06-03] MEDS ORDERED: NA CHLORIDE 0.9% 1,000 ML IV ONE (13:33)
[2022-06-03] MEDS: NA CHLORIDE 0.9% 1,000 ML IV SCH (14:00)
--- NOTE | 2022-06-03 17:46 | CON ---
Date of Consultation: 06/03/2022 Reason For Consultation: Elevated BUN and creatinine, fluid management. History Of Present Illness: This is a 76-year-old gentleman with significant past medical history of DVT, ileostomy, the patient came to the hospital transferred from the rehab to home health. The patient found to have hematuria, difficulty urination. For that reason, brought him to the hospital. In the hospital, found to have elevation in BUN and creatinine, and obstructive with bilateral hydro. For that reason, we have been consulted. The patient was seen by Urology. Gomez was inserted, still draining hematuria. The patient started feeling better. Past Medical History: Includes; 1. Colectomy with ileostomy creation. 2. PEG. 3. DVT. Allergies: NO KNOWN DRUGS ALLERGY. Home Medications: Include; 1. Eliquis. 2. Lasix. 3. Isosorbide. 4. KCl. Current Medications: In the hospital include cefepime, pain medication, and IV fluid. Social History: Lives at home, has home health. Denied smoking. Denied drinking. Denied drug abuse. Past Surgical History: Includes colectomy with ileostomy, PEG tube placement. Review of Systems: Head and Neck: No red eye. No ear pain. GI: Has abdominal pain. : Had urine retention. Lpn Cma: Not applicable. Respiratory: No shortness of breath. Cardiovascular: No chest pain. Endocrine: No polydipsia. Skin: No rash. Physical Examination: Vital Signs: When I saw the patient; blood pressure 98/66, pulse of 61, afebrile. Chest: Clear to auscultation. Heart: S1, S2. Regular. Systolic murmur. Abdomen: Soft PEG tube and ileostomy. Extremities: No edema. Neurologic: Alert. No focality. Skin: Has bruises all over the body. Laboratory Data: WBC 7, H and H 7.8/23.3. Sodium 141, potassium 5.3, bicarb 21, BUN 70, creatinine 4.2, calcium 8.6, phosphorus 6.1, magnesium of 2, albumin 2.2. Urinalysis; WBC more than 50, RBC more than 50. Culture still pending. CT abdomen and pelvis showing bilateral hydronephrosis with punctuated stone in the left kidney, distended bladder with wall thickening. No other masses. Assessment And Plan: 1. Acute kidney injury secondary to obstructive uropathy, superimposed with prerenal, poor perfusion, ATN secondary to low blood pressure, superimposed with diuresis. The patient still looks to me on the dry side. I am going to bolus the patient with 1 L of normal saline. I agree with holding the diuresis and other blood pressure medications and we will monitor the patient. With the presence of questionable of obstructive uropathy and the anemia, I am going to go ahead and send for anemia workup with light chain disease and we will follow up the patient. 2. Hypertension, currently blood pressure on the lower side with the presence of the acute kidney injury. Hold all blood pressure medications, especially diuresis, DANNIE inhibitor and ARB. 3. Hyperkalemia secondary to renal failure. I am going to go ahead and send for TSH, bolus the patient with normal saline to establish better potassium diuresis and we will follow up. 4. Anemia secondary to renal failure with the presence of acute kidney injury. We will send for anemia workup. We will send for serum protein electrophoresis. 5. Obstructive uropathy. We will follow up with Urology. Gomez inserted. 6. Deep vein thrombosis with the presence of hematuria. We will follow up with the primary. Time spent examining the patient [id number], reviewing the data lab and radiology, placing orders, discussing with the patient, explaining risks, benefits, alternatives, discussing with the staff member including nursing discussing with the hospitalist more than 65 minutes. QUINN Voice ID: [id number] Report ID: [id number] ANASTASIIA
[2022-06-03] MEDS: HYDROCODONE/APAP 7.5/325 MG TAB PO PRN (18:52)
[2022-06-03] MEDS: NEPRO SHAKE 237 ML CAN PO SCH (22:18)
[2022-06-04] MEDS: NA CHLORIDE 0.9% 1,000 ML IV SCH ×3 (01:33→11:40)
--- NOTE | 2022-06-04 04:22 | P.PN ---
Date of Service: 06/03/22 Subjective patient appears frail and in bed. Not very talkative. Follows up with PCP Dr. Walker who advised patient to go to the ER after office visit. Patient with gross hematuria. Patient also with worsening renal function. Review of Systems Genitourinary: Hematuria, Retention Physical Examination - Physical Exam General: Alert, In no apparent distress, Other (Frail) Respiratory: Clear to auscultation bilaterally, Normal air movement Cardiovascular: Regular rate/rhythm, Normal S1 S2 Gastrointestinal: Normal bowel sounds, No tenderness; PEG tube; ileostomy Neurological: No focal deficits Urinary: Issa catheter(hematuria) Assessment and Plan - Problems (Diagnosis) (1) Acute renal failure with gross hematuria; Current Visit: Yes Status: Acute Qualifiers: Acute renal failure type: unspecified Qualified Code(s): N17.9 - Acute kidney failure, unspecified (2) UTI (urinary tract infection) Current Visit: Yes Status: Acute Qualifiers: Urinary tract infection type: acute cystitis Hematuria presence: with hematuria Qualified Code(s): N30.01 - Acute cystitis with hematuria (3) Hydronephrosis Current Visit: Yes Status: Acute Qualifiers: Hydronephrosis type: other Qualified Code(s): N13.39 - Other hydronephrosis (4) Anemia Current Visit: Yes Status: Chronic Qualifiers: Anemia type: unspecified type Qualified Code(s): D64.9 - Anemia, unspecified (5) Hyperkalemia Current Visit: Yes Status: Acute (6) s/p ileostomy and PEG tube placement Current Visit: Yes Status: Chronic - Plan -Continue IV cefepime; Follow urine culture. -Irrigate issa catheter every 4 hours and monitor output. Issa exchanged by Urology; May need CBI -Monitor electrolyte(K elevated on admission. Will follow) -Gentle IV hydration. -[place] PRN pain. -Physical therapy consult. -Monitor kidney function -Nephrology and urology input appreciated -Patient is chronically anemic and has required PRBC transfusions in past. Current hgb is 8.1. Monitor CBC daily. Transfuse if < 7. -PEG tube; starting tube feeds to supplement diet. Renal diet ordered. -Reconcile and continue home medications -Monitor and replete electrolytes per protocol. -SCDs for VTE prophylaxis. -Full code Discharge Plan: Home Plan to discharge in: Greater than 2 days - Advance Directives Does patient have a Living Will: No Does patient have a Durable POA for Healthcare: No - Code Status/Comfort Care Code Status Assessed: Yes (Full) Critical Care: No Time Spent Managing Pts Care (In Minutes): 50
[2022-06-04 06:57] LABS: Absolute Lymphocytes (CBC) 0.7 K/uL (0.7-4.9); Lymphocytes % 16.5 % (15.3-44.8); MCV 86.9 fL (80-100); MPV 6.7 fL (7.6-11.3); RBC Red Blood Cell Count 2.37 M/uL (4.33-5.43)
[2022-06-04 07:00] LABS: Hematocrit 20.6 % (39.6-49.0)
[2022-06-04 08:05] LABS: Albumin 1.8 g/dL (3.4-5.0); Ferritin 386.7 ng/mL (26-388); Magnesium 1.8 mg/dL (1.8-2.4); Phosphorus 5.7 mg/dL (2.5-4.9); Potassium 4.7 mmol/L (3.5-5.1); Thyroid Stimulating Hormone 7.58 uIU/mL (0.360-3.740); Uric Acid 8.2 mg/dL (3.5-7.2)
[2022-06-04] MEDS: NEPRO SHAKE 237 ML CAN PO SCH ×2 (08:50→21:00)
[2022-06-04 11:09] VITALS: O2SAT 98
--- NOTE | 2022-06-04 11:55 | P.PN ---
Subjective Date of Service: 06/04/22 Chief Complaint: WINSTON, Hematuria, UTI Subjective: No new changes Physical Examination - Vital Signs Temperature: 97.8 F Blood Pressure: 105/55 Pulse: 76 Respirations: 18 Pulse Ox (%): 99 - Physical Exam General: In no apparent distress HEENT: Atraumatic, Normocephalic Neck: Supple, JVD not distended Respiratory: Other (symmetric chest expansion) Cardiovascular: No rubs, No murmurs Gastrointestinal: Soft and benign, No guarding Musculoskeletal: No clubbing Integumentary: No warmth Neurological: Normal tone Urinary: Other (no bladder distention) External genitalia: Deferred Rectal: Deferred Assessment And Plan - Plan 1. Acute kidney injury secondary to obstructive uropathy, superimposed with prerenal, poor perfusion, ATN secondary to low blood pressure, superimposed with diuresis. He has bilateral hydronephrosis with left nephrolithiasis on imaging. Serum creatinine plateaued at 4.2. start Flomax.Monitor input and output, renal panel. 2. Hypertension. blood pressures currently low normal. Hold BP meds. 3. Obstructive uropathy. We will follow up with Urology. Cont issa. 4. Hyperphosphatemia. Serum phosphorus improved to 5.7 and monitor. 5. Left nephrolithiasis. 24 hour urine collection for stone panel 2 sets, at least one month apart, as outpatient. 6. Acidosis. Start sodium bicarbonate 1300 mg by mouth twice a day. 7. Anemia. Hemoglobin 7.0. Gave retrograde 10,000 units subcutaneous E. 8. Hyperkalemia. Serum potassium improved to 4.7. Monitor.
[2022-06-04] MEDS ORDERED: MAGNESIUM SULFATE 1 gm IVPB 1 GM/100 ML BAG IV ONE (12:21)
--- NOTE | 2022-06-04 12:22 | P.PN ---
Subjective Date of Service: 06/04/22 Chief Complaint: WINSTON, Hematuria, UTI Patient's condition is stable nonverbal still has hematuria Review of Systems is unable to be obtained Physical Examination - Vital Signs Temperature: 97.8 F Blood Pressure: 105/55 Pulse: 76 Respirations: 18 Pulse Ox (%): 99 - Physical Exam General: Alert, Unresponsive Respiratory: Clear to auscultation bilaterally Cardiovascular: No edema, Normal S1 S2 Gastrointestinal: Normal bowel sounds, Soft and benign Assessment And Plan - Current Problems (Diagnosis) (1) Hydronephrosis Current Visit: Yes Status: Acute Plan: P patient has hematuria bilateral hydronephrosis presumed bladder outlet obstruction has Gomez in place patient has has acute renal failure creatinine has increased significantly also anemic we will transfuse 2 units of packed blood red blood cells evaluated by urology repeat ultrasound of the kidneys patient has a PEG tube ileostomy urine culture is negative change to Rocephin seen by nephrology on IV fluids creatinine is slightly improved Qualifiers: Hydronephrosis type: unspecified Qualified Code(s): N13.30 - Unspecified hydronephrosis
[2022-06-04] MEDS ORDERED: EPOETIN ALFA-EPBX 10,000 UNIT/ML VIAL SQ SCH (13:00)
--- NOTE | 2022-06-04 14:49 | RAD REPORT ---
EXAM DESCRIPTION: US - Renal Ultrasound-Complete - 06/04/2022 2:29 pm CLINICAL HISTORY: Bilateral hydronephrosis COMPARISON: Abdomen Pelvis Wo Contrast dated 06/02/2022 FINDINGS: The right kidney measures 11.3 x 6.0 x 5.5 cm. The left kidney measures 12.0 x 6.9 x 6.8 cm. Cortical thickness is normal. Both kidneys show significant increase in cortical echogenicity con sistent with medical renal disease. No solid mass of either kidney seen. Small anechoic renal cysts a re present (Bosniak I). Moderate severity bilateral hydronephrosis present matching the June [address] CT study. Bladder is fully contracted around a Gomez catheter. IMPRESSION: Moderate severity bilateral hydronephrosis. Bilateral medical renal disease with no cortical thinning or solid mass lesion.
[2022-06-04] MEDS ORDERED: NA CHLORIDE 0.9% 250 ML ONE (20:09)
[2022-06-04] MEDS: TAMSULOSIN 0.4 MG SR CAP PO SCH (21:04)
[2022-06-04] MEDS: SODIUM BICARB 325 MG TAB PO SCH (21:04)
[2022-06-05 01:34] LABS: Absolute Lymphocytes (CBC) 0.7 K/uL (0.7-4.9); MCV 86.1 fL (80-100); MPV 6.9 fL (7.6-11.3); RBC Red Blood Cell Count 2.56 M/uL (4.33-5.43)
[2022-06-05 01:49] LABS: Albumin 1.7 g/dL (3.4-5.0); Magnesium 1.9 mg/dL (1.8-2.4); Phosphorus 4.9 mg/dL (2.5-4.9); Potassium 4.5 mmol/L (3.5-5.1)
[2022-06-05] MEDS: NA CHLORIDE 0.9% 1,000 ML IV SCH (03:09)
[2022-06-05] MEDS: NEPRO SHAKE 237 ML CAN PO SCH ×2 (09:00→20:48)
[2022-06-05] MEDS: CEFTRIAXONE 1,000 MG in NA CHLORIDE 0.9% 50 ML IVPB SCH (09:35)
[2022-06-05] MEDS: SODIUM BICARB 325 MG TAB PO SCH ×3 (09:36→20:19)
--- NOTE | 2022-06-05 09:46 | P.PN ---
Subjective Date of Service: 06/05/22 Chief Complaint: WINSTON, Hematuria, UTI Much better no new complaints eating and drinking hematuria has decreased L has bilateral hydronephrosis Review of Systems Unremarkable Physical Examination - Vital Signs Temperature: 97.3 F Blood Pressure: 114/60 Pulse: 75 Respirations: 18 Pulse Ox (%): 100 - Physical Exam General: Alert, In no apparent distress, Oriented x3 Respiratory: Clear to auscultation bilaterally Cardiovascular: No edema, Regular rate/rhythm Assessment And Plan - Current Problems (Diagnosis) (1) Hydronephrosis Current Visit: Yes Status: Acute Plan: Patient is doing much better no new complaints hematuria is decreased he wants to eat and drink labs reviewed hemoglobin is stable Johny ultrasound shows bilateral hydronephrosis Dr. Soria has been informed about the findings of the ultrasound patient is renal function is improving creatinine is declining vital signs stable oxygenation satisfactory Qualifiers: Hydronephrosis type: unspecified Qualified Code(s): N13.30 - Unspecified hydronephrosis
[2022-06-05] MEDS ORDERED: EPOETIN ALFA 10,000 UNIT/ML VIAL SQ ONE (12:30)
[2022-06-05] MEDS: D5 0.45 NS 1,000 ML IV SCH ×2 (13:00→23:00)
--- NOTE | 2022-06-05 13:39 | PN ---
Date of Progress Note: 06/05/2022 Subjective: The patient was admitted with acute kidney injury secondary to obstructive uropathy. The patient was started on hydration. The patient had also prerenal secondary to GI loss. Physical Examination: Vital Signs: Blood pressure 119/64, pulse of 79, afebrile. Chest: Clear to auscultation. Heart: S1, S2. Regular. Abdomen: Soft. Ileostomy. Extremity: No edema. Neuro: Alert. No focality. Laboratory Data: H/h 7./. Sodium 144, potassium 4.5, bicarb 18, BUN 65, creatinine 3.8, calcium 7.8, phosphorus 4.9, magnesium 1.9. Iron saturation 34, albumin 1.7. Corrected calcium is 9.4. Current Medications: The patient on include; 1. Ceftriaxone. 2. Flomax. 3. Sodium bicarb 1300 b.i.d. 4. Nepro. 5. Normal saline. 6. Magnesium. Assessment And Plan: 1. Acute kidney injury secondary to prerenal/obstructive uropathy, on the recovery. I am going to continue the patient on the hydration and we will follow up the patient. 2. Hypertension, controlled, optimal. Continue current treatment. 3. Acidosis non-anion gap metabolic acidosis secondary to renal failure. We will increase sodium bicarb to t.i.d. 4. Anemia of chronic kidney disease. I am going to give the patient Retacrit and we will follow up. 5. Urinary tract infection. The patient on antibiotic. We will follow up culture. 6. Hyperkalemia secondary to renal failure resolved. 7. Hyponatremia secondary to depletional. We will continue hydration. Time spent examining the patient [id number], reviewing the data lab and radiology, placing orders, discussing with the patient, explaining risks, benefits, alternatives, discussing with the staff member including nursing discussing with the hospitalist more than 35 minutes. QUINN Voice ID: [id number] Report ID: [id number] ANASTASIIA
[2022-06-05] MEDS: TAMSULOSIN 0.4 MG SR CAP PO SCH (20:19)
[2022-06-06] MEDS: HYDROCODONE/APAP 7.5/325 MG TAB PO PRN ×2 (04:07→14:31)
[2022-06-06 06:13] LABS: Albumin 1.6 g/dL (3.4-5.0); Magnesium 1.6 mg/dL (1.8-2.4); Phosphorus 3.9 mg/dL (2.5-4.9)
[2022-06-06] MEDS: NEPRO SHAKE 237 ML CAN PO SCH ×2 (09:00→20:13)
[2022-06-06] MEDS ORDERED: MAGNESIUM SULFATE 1 gm IVPB 1 GM/100 ML BAG IV ONE (09:00)
[2022-06-06] MEDS: CEFTRIAXONE 1,000 MG in NA CHLORIDE 0.9% 50 ML IVPB SCH (09:04)
[2022-06-06] MEDS: SODIUM BICARB 325 MG TAB PO SCH ×3 (09:04→20:13)
--- NOTE | 2022-06-06 09:57 | P.PN ---
Subjective Date of Service: 06/06/22 Chief Complaint: WINSTON, Hematuria, UTI Again patient is doing better no complaints maturity has resolved Review of Systems Unremarkable Physical Examination - Vital Signs Temperature: 97.2 F Blood Pressure: 102/66 Pulse: 72 Respirations: 18 Pulse Ox (%): 99 - Physical Exam General: Alert, In no apparent distress, Oriented x3 Neck: Supple Respiratory: Clear to auscultation bilaterally Cardiovascular: Normal pulses, Regular rate/rhythm - Studies Microbiology Data (last 24 hrs): 06/02/22 16:55 Catheterized Urine Henderson Count - Final BETWEEN 10,000 & 100,000 CFU/ML 06/02/22 16:55 Catheterized Urine - Final Enterococcus Gallinarum Assessment And Plan - Current Problems (Diagnosis) (1) Hydronephrosis Current Visit: Yes Status: Acute Plan: Patient's renal function is improving creatinine declining discussed with Dr. Soria at ultrasound tomorrow and the kidney function is not improving stable possible interventional radiology to place a right-sided percutaneous nephrostomy tube continue with the hydration appreciate nephrology follow-up hemoglobin is also stable urine is now clear patient has a metabolic acidosis Enterococcus isolated in the urine changed to p.o. amoxicillin patient is eating and drinking Qualifiers: Hydronephrosis type: unspecified Qualified Code(s): N13.30 - Unspecified hydronephrosis
[2022-06-06] MEDS: D5 0.45 NS 1,000 ML IV SCH ×2 (10:46→12:41)
[2022-06-06] MEDS: AMOXICILLIN TRIHYDR 250 MG CAP PO SCH ×2 (10:46→14:32)
--- NOTE | 2022-06-06 14:46 | PN ---
Date of Progress Note: 06/06/2022 Subjective: The patient was admitted with acute kidney injury secondary to prerenal/obstructive uropathy and hyperkalemia. The patient started on hydration, kidney function plateaued. Physical Examination: Vital Signs: Blood pressure 102/66, pulse of 72, afebrile. The patient had good urine output of 2200. Chest: Clear to auscultation. Heart: S1, S2. Diastolic murmur. Abdomen: Soft, nontender. Ileostomy. Extremities: No edema. Neuro: Alert. No focality. Swelling on the right foot with tenderness on the mid MTA. Laboratory Data: WBC 5.3, H and H 7.4/22. Sodium 141, potassium 4, bicarb 18, BUN 58, creatinine 3.7, calcium 7.5, phosphorus 3.9, magnesium 1.6. Current Medications: The patient on include Flomax, amoxicillin, Epogen, sodium bicarb 1300 t.i.d., Nepro, D5 half at 100 per hour. Assessment And Plan: 1. Acute kidney injury secondary to prerenal, superimposed with obstructive uropathy. Continue Gomez. Continue Flomax. We will follow up with Urology. 2. Hypertension, controlled, optimal. Continue current treatment. 3. Acidosis non-anion gap metabolic acidosis secondary to renal failure, obstructive uropathy. Continue oral bicarb. 4. Urinary tract infection secondary to Enterococci. The patient was started on amoxicillin. We will follow up. 5. Foot infection. We will get x-ray. 6. Deconditioning. Continue PT, OT. Time spent examining the patient [id number], reviewing the data lab and radiology, placing orders, discussing with the patient, explaining risks, benefits, alternatives, discussing with the staff member including nursing discussing with the hospitalist more than 35 minutes. QUINN Voice ID: [id number] Report ID: [id number] ANASTASIIA
--- NOTE | 2022-06-06 15:20 | RAD REPORT ---
EXAM DESCRIPTION: RAD - Foot Right 2 View - 06/06/2022 3:06 pm CLINICAL HISTORY: right foot pain COMPARISON: No comparisons FINDINGS: No acute fracture. No malalignment. Midfoot and hindfoot degenerative changes. IMPRESSION: No acute osseous abnormality involving the right foot.
[2022-06-06] MEDS: AMPICILLIN SODIUM 2 GM in NA CHLORIDE 0.9% 100 ML IVPB SCH (18:51)
[2022-06-06] MEDS: TAMSULOSIN 0.4 MG SR CAP PO SCH (20:12)
[2022-06-07] MEDS ORDERED: NA CHLORIDE 0.9% 0 ML ONE (01:57)
[2022-06-07] MEDS: AMPICILLIN SODIUM 2 GM in NA CHLORIDE 0.9% 100 ML IVPB SCH ×3 (02:12→17:19)
[2022-06-07] MEDS: D5 0.45 NS 1,000 ML IV SCH ×2 (02:20→09:16)
[2022-06-07 04:09] LABS: Albumin 1.5 g/dL (3.4-5.0); Magnesium 1.7 mg/dL (1.8-2.4); Phosphorus 3.8 mg/dL (2.5-4.9); Potassium 3.8 mmol/L (3.5-5.1)
[2022-06-07] MEDS ORDERED: MAGNESIUM SULFATE 1 gm IVPB 1 GM/100 ML BAG IV ONE (04:59)
--- NOTE | 2022-06-07 08:02 | RAD REPORT ---
EXAM DESCRIPTION: US - Renal Ultrasound-Limited - 06/07/2022 6:03 am CLINICAL HISTORY: Follow-up for hydronephrosis as per urology COMPARISON: Renal Ultrasound-Complete dated 06/04/2022; Abdomen Pelvis Wo Contrast dated 06/02/2022 FINDINGS: Increased echogenicity of the kidneys bilaterally. The right kidney measures 12 cm. Simple right renal cyst measuring 14 millimeters. Persistent mild ri ght-sided hydronephrosis with mild improvement. The right renal pelvis measures 15 mm, previously 18 mm. The left kidney measures 12.2 cm. Mild left-sided hydronephrosis with some interval improvement. The left renal pelvis measures 19 mm, previously 25 mm. No masses. IMPRESSION: Persistent hydronephrosis with marginal improvement compared with 06/02/2022.
[2022-06-07] MEDS ORDERED: POTASSIUM CL SA 10 MEQ TAB PO ONE (09:00)
[2022-06-07] MEDS: SODIUM BICARB 325 MG TAB PO SCH ×3 (09:18→20:53)
[2022-06-07] MEDS: NEPRO SHAKE 237 ML CAN PO SCH ×2 (09:21→20:54)
--- NOTE | 2022-06-07 13:00 | P.PN ---
Subjective Date of Service: 06/07/22 Chief Complaint: WINSTON, Hematuria, UTI Subjective: Improving No acute events overnight. He denies any urinary symptoms. He reports no acute concerns this morning. Review of Systems 10-point ROS is otherwise unremarkable General: Weakness Musculoskeletal: Leg Pain (right) Physical Examination - Vital Signs Temperature: 98.0 F Blood Pressure: 119/69 Pulse: 78 Respirations: 18 Pulse Ox (%): 99 - Physical Exam General: Alert, In no apparent distress, Oriented x3 HEENT: Atraumatic, PERRLA, Mucous membr. moist/pink, EOMI, Sclerae nonicteric Neck: Supple, JVD not distended Respiratory: Clear to auscultation bilaterally, Normal air movement Cardiovascular: No edema, Regular rate/rhythm, Normal S1 S2, No gallops, No rubs, No murmurs Gastrointestinal: Normal bowel sounds, Soft and benign, Non-distended, No tenderness, No rebound, No guarding, Other (ileostomy site is clean, dry, and intact) Musculoskeletal: No clubbing, Tenderness (to RLE) Integumentary: No rashes Neurological: Normal speech, Cranial nerves 3-12 intact, Normal affect Assessment And Plan - Plan # KDIGO Stage III Acute Kidney Injury # 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 Though the bladder is only modestly distended, the wall thickening is severe. Consider Gomez catheter placement. Rectal wall thickening which may reflect a colitis. The patient has a Ehsan's pouch. Ascites which is nonspecific. It may be secondary to anasarca." - Renal ultrasound = "Moderate severity bilateral hydronephrosis. Bilateral medical renal disease with no cortical thinning or solid mass lesion." - Management plan: - Urology consulted and Dr. Soria following - recommendations appreciated - Nephrology consulted and Dr. Perales following - recommendations appreciated - Infectious Diseases consulted and spoke with Dr. Doyle - recommendations appreciated - Continue ampicillin for now - Monitor creatinine and urine output - Renally dose medications # History of Deep Venous Thrombosis - Not on anticoagulation given gross hematuria and possible nephrostomy tube placement - Will order RLE Doppler given significant pain - Continue SCDs # S/P Colectomy with Ileostomy, PEG tube Melo Grier M.D. Discharge Plan: [facility]
[2022-06-07 15:59] LABS: Albumin, (SPE) 2.2 g/dL (3.8-4.8); Alpha-1-Globulins 0.5 g/dL (0.2-0.3); Alpha-2-Globulins 0.7 g/dL (0.5-0.9); Gamma Globulins 1.5 g/dL (0.8-1.7); INTERPRETATION REPORT
--- NOTE | 2022-06-07 16:52 | CON ---
CONSULTATION FOLLOWUP NOTE Subjective: Culture results from his catheterized urine culture obtained on admission revealed the p resence of a highly resistant Enterococcus, sensitive only to ampicillin and gentamicin. As a result , on my recommendation, the patient was switched from oral amoxicillin to ampicillin 2 g every 8 hour s yesterday late afternoon/early evening. Repeat renal ultrasound obtained this morning, 06/07/2022, about 12 hours after definitive IV antimicrobial was initiated, revealed persistent mild right-sided hydronephrosis with mild improvement as well as persistent left-sided hydronephrosis with some inter rochelle improvement. His creatinine today was 3.51. Assessment And Recommendations: This is a 77-year-old gentleman with history of DVT, on Eliquis, hel d now because of gross hematuria in the setting of severe cystitis, acute kidney injury, and bilatera l hydronephrosis. Has had a catheter in place since my initial consultation, but only treated with d efinitive effective antimicrobial therapy for about 12 hours as of the time of the ultrasound with mi nimal change in his hydronephrosis. As a result, I recommend the followin.Continue ampicillin for at least the next 24-48 hours and repeat ultrasound after the cystitis has had a bit more time to resolve. If persistence of hydronephrosis noted at that time, a percutaneous nephrostomy tube should be placed. 2.Follow up in the Urology Clinic on discharge for a cystoscopic evaluation. 3.Flomax 0.4 mg daily recommended on discharge. TAO/MODL Voice ID: [id number] Report ID: [id number]
[2022-06-07] MEDS: TAMSULOSIN 0.4 MG SR CAP PO SCH (20:53)
--- NOTE | 2022-06-07 21:32 | PN ---
Date of Progress Note: 06/07/2022 Chief Complaint: Acute kidney injury, obstructive uropathy. History Of Present Illness: The patient was found to have prerenal azotemia and obstructive uropathy associated with hyperkalemia. Urology is consulted for hydronephrosis. Patient received IV fluids for hydration to treat acute kidney injury. The patient has chronic catheter. He previously was sta rted on Flomax for bladder outlet obstruction and BPH. Review of Systems: Denies new complaints. Physical Examination: Lungs: Clear to auscultation bilaterally. Heart: S1, S2. Abdomen: Soft. Extremities: No edema. Laboratory Data: Sodium 140, potassium 4.0, bicarbonate 18, BUN 58, creatinine 3.7. Impression And Plan: 1.Acute kidney injury secondary to multiple causes including prerenal azotemia with underlying obstr uctive uropathy, likely patient has advanced chronic kidney disease due to obstructive uropathy and h ypertensive kidney disease. Patient was found to have non-anion gap metabolic acidosis secondary to obstructive uropathy and chronic kidney disease. 2.Urinary tract infection due to enterococci. Continue amoxicillin. Adjust dose to renal function. 3.Foot infection per primary team. 4.Hypertension. Continue current medication. EB/MODL Voice ID: [id number] Report ID: [id number]
[2022-06-07] MEDS: HYDROCODONE/APAP 7.5/325 MG TAB PO PRN (23:19)
[2022-06-08] MEDS: D5 0.45 NS 1,000 ML IV SCH ×2 (00:27→04:41)
[2022-06-08] MEDS: AMPICILLIN SODIUM 2 GM in NA CHLORIDE 0.9% 100 ML IVPB SCH ×3 (00:28→17:47)
[2022-06-08 05:03] LABS: Albumin 1.5 g/dL (3.4-5.0); Magnesium 1.9 mg/dL (1.8-2.4)
[2022-06-08] MEDS ORDERED: MAGNESIUM OXIDE 400 MG TAB PO SCH (09:00)
[2022-06-08] MEDS: NEPRO SHAKE 237 ML CAN PO SCH ×2 (10:01→20:04)
[2022-06-08] MEDS: SODIUM BICARB 325 MG TAB PO SCH ×3 (10:22→19:51)
--- NOTE | 2022-06-08 11:50 | PN ---
Date of Progress Note: 06/08/2022 Subjective: The patient was admitted with acute kidney injury secondary to obstructive uropathy. The patient has been having Gomez, seen by Urology, recommended repeat ultrasound and if it persists, the patient may need percutaneous nephrostomy. The patient feeling okay. No event. Physical Examination: Vital Signs: Blood pressure 113/60, pulse of 76, afebrile. Chest: Clear to auscultation. Heart: S1, S2. Regular. Abdomen: Ileostomy. Extremity: No edema. Neurologic: Alert. No focality. Laboratory Data: WBC 5.3, H and H 7.4/22. Sodium 141, potassium 4, bicarb 20, BUN 61, creatinine 3.6, calcium 7.9, phosphorus 4, magnesium 1.9, albumin 1.5, corrected calcium is 9.5. Current Medications: The patient on include Flomax, ampicillin, sodium bicarb drip, Zofran, D5 half. Assessment And Plan: 1. Acute kidney injury secondary to obstructive uropathy. Continue to recover, plateaued currently. Continue leg bag. Continue Flomax and we will follow up. Discontinue IV fluid. 2. Hyperkalemia secondary to renal failure, resolved. 3. Hypomagnesemia. We will supplement. 4. Anemia. Light chain disease has been ruled out and iron deficiency anemia ruled out. Mostly, it is secondary to chronic kidney disease. We will continue ALEXANDER. 5. Urinary tract infection secondary to Enterococci. The patient is on ampicillin. We will follow up. 6. Hydronephrosis as above. Time spent examining the patient [id number], reviewing the data lab and radiology, placing orders, discussing with the patient, explaining risks, benefits, alternatives, discussing with the staff member including nursing discussing with the hospitalist more than 35 minutes. QUINN Voice ID: [id number] Report ID: [id number] ANASTASIIA
--- NOTE | 2022-06-08 13:37 | P.DS ---
Admission Date: 06/02/22 Discharge Date: 06/08/22 Disposition: TRANSFER TO [facility] Comment: [facility] Discharge Condition: FAIR Reason for Admission: WINSTON, Hematuria, UTI Consultations: 1. Nephrology 2. Urology 3. 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 Leonel Dejesus Jr. is a pleasant 77 year old male with a past medical history significant for prior DVT, PEG-tube dependence, and diverticulitis s/p colectomy with ileostomy who was admitted to the [facility] on 06/02/2022 for hematuria and acute kidney injury. He was admitted to the Medicine service for further evaluation. Upon evaluation, his creatinine was noted to be 4.20 (was 0.38 on 03/20/2022). Initial renal ultrasound revealed, "moderate severity bilateral hydronephrosis. Bilateral medical renal disease with no cortical thinning or solid mass lesion." CT abdomen/pelvis revealed, "bilateral hydroureteronephrosis which may be secondary to bladder outlet obstruction. Though the bladder is only modestly distended, the wall thickening is severe. Consider Gomez catheter placement. Rectal wall thickening which may reflect a colitis. The patient has a Ehsan's pouch. Ascites which is nonspecific. It may be secondary to anasarca." Nephrology was consulted and believed his acute renal failure to be, "secondary to obstructive uropathy, superimposed with prerenal, poor perfusion, ATN secondary to low blood pressure, superimposed with diuresis." Urology was consulted and he was seen by Dr. Soria. He recommended Gomez catheter placement and repeating a renal ultrasound in a few days. Repeat renal ultrasound revealed, "persistent hydronephrosis with marginal improvement compared with 06/02/2022." Due to lack of meaningful renal recovery, Dr. Soria recommended transfer to an IR-capable facility for nephrostomy tube placement. A doc-to-doc was completed with Dr. Price at [facility], who generously accepted him for transfer. In regards to her MDR UTI, Infectious Diseases was consulted. Dr. Doyle evaluated her and advised that she be continued on IV ampicillin for now. On 06/08/2022, he was seen on rounds and deemed medically stable for transfer. He was given the opportunity to ask questions and reported no further questions. Furthermore, all questions were answered to the best of my ability. A copy of this discharge summary will be sent to Dr. Price to facilitate continuity of care. Today, I personally spent 40 minutes on his case, of which greater than 50% of the time was spent in patient education, counseling, and coordination of care as described above. - Physical Exam General: Alert, In no apparent distress, Oriented x3 HEENT: Atraumatic, PERRLA, Mucous membr. moist/pink, EOMI, Sclerae nonicteric Neck: Supple, JVD not distended Respiratory: Clear to auscultation bilaterally, Normal air movement Cardiovascular: No edema, Regular rate/rhythm, Normal S1 S2, No gallops, No rubs, No murmurs Gastrointestinal: Normal bowel sounds, Soft and benign, Non-distended, No tenderness, No rebound, No guarding, Other (ileostomy site is clean, dry, and intact) Musculoskeletal: No clubbing, No tenderness Integumentary: No rashes Neurological: Normal speech, Cranial nerves 3-12 intact, Normal affect Vital Signs/Physical Exam: Temp Pulse Resp BP Pulse Ox 97.9 F 68 18 112/65 97 06/08/22 12:00 06/08/22 12:00 06/08/22 12:00 06/08/22 12:00 06/08/22 12:00 Laboratory Data at Discharge: WBC 5.30 K/uL (4.3-10.9) D 06/05/22 01:23 Hgb 7.4 g/dL (13.6-17.9) L 06/05/22 01:23 Hct 22.0 % (39.6-49.0) L 06/05/22 01:23 Plt Count 256 K/uL (152-406) 06/05/22 01:23 Sodium 141 mmol/L (136-145) 06/08/22 03:58 Potassium 4.0 mmol/L (3.5-5.1) 06/08/22 03:58 BUN 61 mg/dL (7-18) H 06/08/22 03:58 Creatinine 3.66 mg/dL (0.55-1.3) H 06/08/22 03:58 Glucose 96 mg/dL (74-106) 06/08/22 03:58 Uric Acid 8.2 mg/dL (3.5-7.2) H 06/04/22 06:41 Phosphorus 4.0 mg/dL (2.5-4.9) 06/08/22 03:58 Magnesium 1.9 mg/dL (1.8-2.4) 06/08/22 03:58 Total Bilirubin 0.3 mg/dL (0.2-1.0) 06/02/22 16:35 AST 9 U/L (15-37) L 06/02/22 16:35 ALT < 10 U/L (12-78) L 06/02/22 16:35 Alkaline Phosphatase 75 U/L (45-117) 06/02/22 16:35 Triglycerides 99 mg/dL (<150) 06/03/22 01:54 Cholesterol 127 mg/dL (<200) 06/03/22 01:54 HDL Cholesterol 32 mg/dL (40-60) L 06/03/22 01:54 Cholesterol/HDL Ratio 3.97 06/03/22 01:54 Home Medications: Na Bicarb Tab [Sodium Bicarb 325 MG Tab*] 1,300 mg PO TID tab 06/08/22 Tamsulosin [Flomax*] 0.4 mg PO BEDTIME cap 06/08/22 Diet: Renal Activity: Fall precautions Followup: Ventura Walker MD [Primary Care Provider] -
--- NOTE | 2022-06-08 13:53 | CON ---
History Of Present Illness: This is a 77-year-old male. I was consulted for evaluation of urinary t ract infection secondary to Enterococcus gallinarum. The patient was brought in on June 02 with history of ileostomy, PEG tube in place, anemia, DVT, coming in with bloody urine. The patient denie s any headache, nausea, vomiting, chest pain, abdominal pain, constipation, or diarrhea. Past Medical History: As per HPI plus DVT, colectomy with ileostomy, and PEG tube placement. Social History: Nonsmoker, nondrinker. Family History: Noncontributory. Medications: Ampicillin. See MAR for other medications. Allergies: NO KNOWN DRUG ALLERGIES. Review of Systems: A 10-point review was performed. Physical Examination: General: This is a 77-year-old male, lying in bed, not in any acute cardiopulmonary distress. Vital Signs: Temperature 97.9, pulse 68, respirations 18, blood pressure 112/65. HEENT: Unremarkable. Neck: Supple. Lungs: Clear to auscultation. Heart: S1, S2. Regular. Abdomen: Soft. Bowel sounds present. PEG tube in place. Ileostomy tube in place. Gomez catheter in place with green tea color urine in the Gomez bag with some cloudiness and cast also noted. Laboratory Data: Shows WBC 5.3, hemoglobin 7.4, platelets are 256. Chemistry shows sodium 141, pota ssium 4, chloride 113, bicarb 20, BUN 61, creatinine 3.6, glucose is 96. Assessment And Plan: 1.Urinary tract infection secondary to Enterococcus gallinarum, currently on ampicillin. We will re commend to continue antibiotic for 5 days. Concerned because of the patient's PEG tube and ileostomy . I am concerned regarding the absorption of antibiotic by PEG tube route. Consider continuing IV a ntibiotic. 2.Renal failure. Monitor kidney function. 3.Anemia of chronic disease. 4.Severe protein-calorie malnourishment. Continue supportive care. We will follow the patient as n maximiliano. NF/MODL Voice ID: [id number] Report ID: [id number]
[2022-06-08 13:59] LABS: Vitamin D 1,25-Dihydroxy Total <8 pg/mL (18-72); Vitamin D,1,25-OH2, D2 <8 pg/mL
[2022-06-08 17:36] VITALS: TEMP 98.2
--- NOTE | 2022-06-08 18:18 | RAD REPORT ---
EXAM DESCRIPTION: US - Extremity Venous Uni Ltd - 06/08/2022 6:06 pm CLINICAL HISTORY: Possible DVT COMPARISON: None. TECHNIQUE: Real-time sonographic evaluation of the right lower extremity deep venous system was perf ormed. FINDINGS: Normal compressibility, flow augmentation, phasic flow and spontaneous flow is identified in the right lower extremity deep venous system. No intraluminal filling defects seen. IMPRESSION: No DVT in the right lower extremity.
[2022-06-08] MEDS: TAMSULOSIN 0.4 MG SR CAP PO SCH (19:50)
[2022-06-08 20:17] VITALS: BP 127/72
== END 2022-06-08 20:45 | disposition short-term general hospital (02) | DRG 682 ==
LOC: ER 13:34 → ERHOLD 20:01 → 4TH 06-03 15:01
PROVIDERS: ADMIT Hospitalist; ATTEND Hospitalist
PROC: 30233N1 Transfusion of Nonautologous Red Blood Cells into Peripheral Vein, Percutaneous Approach (ICD-10-PCS; principal; 2022-06-04)
DX: N17.0 Acute kidney failure with tubular necrosis (principal); E43 Unspecified severe protein-calorie malnutrition; N30.01 Acute cystitis with hematuria; Z16.24 Resistance to multiple antibiotics; N13.4 Hydroureter; N13.30 Unspecified hydronephrosis; B95.2 Enterococcus as the cause of diseases classified elsewhere; N32.0 Bladder-neck obstruction; E87.5 Hyperkalemia; E83.42 Hypomagnesemia; D64.9 Anemia, unspecified; Z68.20 Body mass index [BMI] 20.0-20.9, adult; Z86.718 Personal history of other venous thrombosis and embolism; Z90.49 Acquired absence of other specified parts of digestive tract; Z93.2 Ileostomy status; Z93.1 Gastrostomy status; Z79.01 Long term (current) use of anticoagulants; Z20.822 Contact with and (suspected) exposure to COVID-19
CPT/HCPCS: 36415; 51702; 74176; 76770; 76775; 80048; 80053; 80061; 80069; 81001; 81015; 82607; 82652; 82728; 82746; 82947; 83540; 83735; 83970; 84100; 84165; 84439; 84443; 84466; 84550; 85025; 86850; 86900; 86901; 87077; 87086; 87088; 87186; 87811; 93971; 96365; 96375; 97110; 97161; 99284; J0290; J0692; J1815; J2250; J3475; J7030; J7050; J7799; P9016; Q5106; U0003

== ENCOUNTER 2023-03-22 06:09 | Day surgery (SDC) | payer OTHER ==
[2023-03-10 14:05] LABS: Absolute Lymphocytes (CBC) 2.2 K/uL (0.7-4.9); Hematocrit 33.5 % (39.6-49.0); Lymphocytes % 36.5 % (15.3-44.8); MPV 8.8 fL (7.6-11.3); RBC Red Blood Cell Count 3.73 M/uL (4.33-5.43)
[2023-03-10 14:11] LABS: Protime INR 0.95
[2023-03-10 14:21] LABS: Potassium 4.2 mEq/L (3.5-5.1)
--- NOTE | 2023-03-10 17:18 | RAD REPORT ---
EXAM DESCRIPTION: RADChest Pa And Lat (2 Views)03/10/2023 1:41 pm CLINICAL HISTORY: pre op pending urolift COMPARISON: Chest Single View dated 03/21/2022 TECHNIQUE: PA and lateral views of the chest. FINDINGS: The lungs are clear. No pneumothorax or effusion. The cardiomediastinal contours are unre markable. IMPRESSION: No acute cardiopulmonary process.
--- NOTE | 2023-03-14 10:21 | EKG ---
Test Date: 2023-03-10 Test Time: 13:13:24 [employer]icated Truck Driver: LILIA MEASUREMENT RESULTS: Intervals: Rate: 63 IA: 150 QRSD: 92 QT: 400 QTc: 409 Lanagan: P: 76 IA: 150 QRS: 59 T: 82 INTERPRETIVE STATEMENTS: Normal sinus rhythm Normal ECG Compared to ECG 03/20/2022 21:24:32 Atrial premature complex(es) no longer present Aberrant conduction of supraventricular beat(s) no longer present ST (T wave) deviation no longer present Electronically Signed On 03-14-23 10:14:35 CDT by Efren Hammer
[2023-03-22] MEDS ORDERED: Ringers Lactate 1,000 ML IV ONE (06:32)
[2023-03-22] MEDS ORDERED: propofoL 200 MG/20 ML VIAL IV ONE (06:58)
[2023-03-22] MEDS ORDERED: Gentamicin Inj 160 MG in NA CHLORIDE 0.9% 100 ML IV SCH (07:00)
[2023-03-22] MEDS: AMPICILLIN SODIUM 2 GM/VIAL VIAL ONE ×2 (07:10→07:27)
[2023-03-22] MEDS ORDERED: ONDANSETRON 4 MG/2 ML VIAL ONE (07:42)
[2023-03-22] MEDS ORDERED: dexAMETHasone 10 MG/ML VIAL ONE (07:44)
[2023-03-22] MEDS ORDERED: EPHEDRINE SULF 50 MG/ML VIAL ONE (07:50)
[2023-03-22] MEDS ORDERED: CODEINE 30MG/APAP 300MG TAB PO PRN (08:56)
[2023-03-22] MEDS ORDERED: PHENAZOPYRIDINE 100MG TAB PO ONE (08:56)
--- NOTE | 2023-03-22 09:17 | OP ---
Surgeon: IRENE AMAYA Preoperative Diagnoses: 1.Benign prostatic hypertrophy with lower urinary tract obstruction. 2.Urinary retention. Postoperative Diagnoses: 1.Benign prostatic hypertrophy with lower urinary tract obstruction. 2.Urinary retention. Principal Procedure: Prostatic urethral lift/UroLift with 7 implant used, 6 successfully placed, 1 a ttempted, but failed. Indication For Procedure: Mr. Dejesus presented to the Urology Clinic with a recent episode of acu te urinary retention requiring catheter to be placed. He has some underlying neuromuscular dysfuncti on, which requires use of a wheelchair or walker, and so he was counseled extensively on the potentia l for underlying neuromuscular dysfunction of the bladder. He was given the option to undergo furthe r study to include urodynamics evaluation versus direct attempt at surgical management of his obstruc tion within the prostatic urethra, and he elected the latter approach. I did residential child care counselor the patient on the potential for persistent retention observed postoperatively, which would require further study an d evaluation to elucidate the underlying neuromuscular dysfunction if present. Procedure In Detail: The patient was consented in the preoperative holding area before being transfe rred to operative suite where general anesthesia was induced. He was given ampicillin 2 g and gentam icin 160 mg IV antimicrobial prophylaxis, and he was placed in the lithotomy position. He was padded and secured appropriately to the table, and his genitalia was prepped with Hibiclens. He was then d raped in standard fashion, and the case was begun using the 20-Slovak UroLift sheath and a visual obt urator to traverse the urethra and into the bladder with ease. Significant prostatic urethral length was again noted with interdigitating lateral lobar hypertrophy before entering the bladder. No sign ificant intravesical projection of a median lobe was noted, and the bladder was free of mucosal lesio n, foreign body, or stone. The urine was clear as the patient had been started on antimicrobial sinc e last week based on his preoperative catheter urine culture. The case was then continued by skylar motta the visual obturator for the first UroLift implant device and targeting the bladder neck region wi thin the left anterior lateral zone of his prostate. Targeting about 1.5 to 2 cm distal to the bladd er neck opening at about the 11 o'clock position having swept the anterior lobar tissue from anterior to lateral, I then angled the scope about 10 degrees before pressing the trigger, deploying the need le through the substance of the prostate. An additional 10 degrees of compression was then performed to ensure the needle seated outside the capsular surface of the prostate before a second pole of the trigger did deploy the capsular tab and partially retract the needle. A third pull of the trigger d id further tension the device and the suture while completely retracting the needle, before I then ad vanced the scope back to the midline and then tore the bladder neck about 2 to 3 mm until the white s uture of the monofilament was centered in the delivery bay. I then pulled the trigger a fourth time deploying the capsular tab and tailoring the suture nicely lateralizing the tissue in that location a nd implanted nicely within the prostatic urethra away from the bladder neck opening. As a result, I advanced the scope and the device back into the bladder before switching for UroLift implant, which w as similarly placed using the exact same sequence as described above at this time on the right side o f his prostate at around the 11 o'clock position. Of note, I said 11 o'clock when discussing the lef t-sided implant, which should have correctly been suggested to be at 1 o'clock position. After a sec ond implant was placed at the bladder neck region on the right side of his prostate successfully nice ly opening a channel in the region of the bladder neck, I then switched for a new UroLift implant and targeted at the level of the verumontanum on the left side of the prostate. In this case, after tar geting the tissue at around the 2 to 3 o'clock position within the left apical region of the prostate and deploying the needle through the substance of the prostate before deploying the capsular tab and while tensioning the suture, the device did actually rupture the substance at the prostatic urethra, which instead of appropriately lateralizing the tissue did cause ultimately the capsular tattoo fail ed to be appropriately deployed and to lateralize the tissue and thus there was failure of placement of the third implant at the left apical lateral zone of the prostate. So I removed that implant and ensured that the urethral end piece was in fact removed successfully, and it was. I then placed a fo urth implant at this time at the level of the verumontanum at around the 9 to 10 o'clock positions on the right side of his prostate successfully. I then surveyed the channel created using a visual obt urator and determined additional implants would be beneficial again at the left apical zone of the pr ostate where the prior implant attempted placement had failed, and so I successfully placed an implan t in that location. At this point, 5 implants had been used and I surveyed the channel again created using a visual obturator. There was still a slight degree of intrusion of lateral lobar tissue ante riorly more coming from the patient's left mid apical region then from the right, but there was equal lateral lobar intrusion. So I placed a 6th implant in the mid apical zone of the prostate more ante riorly than the prior placed implant on the right side at around the 10 to 11 o'clock position and it did nicely lateralize the tissue within the mid apical and median zone of the prostate. As a result , after surveying the channel created, I placed a 7th implant at this time in the mid zone of the pro state on the left side nicely lateralizing some prostatic adenoma in that region and creating a beaut iful continuous anterior channel from the verumontanum through into the bladder neck such that with t he fluid decompressing his bladder empty, the channel was persistent and there was minimal oozing of blood. As a result, I removed the scope and UroLift sheath and placed an 18-Slovak coude-tipped cath eter into his bladder with ease. About 30 cc of sterile water was placed in the balloon, and the nilson inage of urine and fluid was light pink. This was connected to a leg bag and he was then taken out o f the lithotomy position. He was then awakened from general anesthesia, transferred to a stretcher, and then transferred to the recovery room in good condition. Complications: None. Discharge Disposition: He will be standard UroLift pathway and be given an opportunity to void in [facility] prior to discharge. If he is successful, he will be discharged home without the cath eter and may follow up in 1 month's time. He may benefit in that case from a bladder scan postvoid r esidual assessment done before the end of this week given his history of urinary retention. If he is unsuccessful at voiding today, he will be instructed to remove the catheter tomorrow morning at 7 a. m., and because of his history of urinary retention, I would like him to come by the office for bladd er scan postvoid residual assessment somewhere between 1 o'clock and 5 o'clock p.m. to ensure he is e mptying adequately. He should continue the antimicrobial prescribed preoperatively and was discharged with a prescription for Tylenol with C odeine for pain management. TAO/VITOR Voice ID: [id number] Report ID: [id number]
[2023-03-22 10:08] VITALS: BP 131/56; TEMP 97; O2SAT 99
== END 2023-03-22 11:17 | disposition home or self-care (01) ==
LOC: OR 06:09
PROVIDERS: ATTEND Urology
PROC: 0T7D8DZ Dilation of Urethra with Intraluminal Device, Via Natural or Artificial Opening Endoscopic (ICD-10-PCS; principal; 2023-03-22 07:30)
DX: N40.1 Benign prostatic hyperplasia with lower urinary tract symptoms (principal); N13.8 Other obstructive and reflux uropathy; R33.9 Retention of urine, unspecified; Z86.718 Personal history of other venous thrombosis and embolism; N18.9 Chronic kidney disease, unspecified; R31.0 Gross hematuria; D64.9 Anemia, unspecified
CPT/HCPCS: 93005; 87088; 85025; 87086; 80048; 36415; 85610; 87077 ×3; 87186 ×3; 71046; 52441; 52442 ×5; J2704; J1580; J1100; J2405; J0290; J7120